=== PATIENT | male | born 1975 | race Caucasian/White ===

== ENCOUNTER → 2016-06-27 | Outpatient (REF) | payer BC | LOC: M SMT 09:30 | PROVIDERS: ATTEND Urology | DX: Z30.2 Encounter for sterilization (principal) ==

== ENCOUNTER → 2016-08-25 | Outpatient (REF) | payer BC ==
[2016-08-25 13:56] LABS: IMMMOTILE SPERM CENTRIFUGED ABSENT (ABSENT); IMMOTILE SPERM ABSENT (ABSENT); MOTILE SPERM ABSENT (ABSENT); MOTILE SPERM CENTRIFUGED ABSENT (ABSENT)
== END ==
LOC: M SMT 13:15
PROVIDERS: ATTEND Urology
DX: Z30.2 Encounter for sterilization (principal)

== ENCOUNTER 2018-11-24 11:23 | Inpatient (IN) | payer BC ==
[~2018-11-24] VITALS: Ht 182.9 cm; Wt 143.8 kg
[2018-11-24] MEDS ORDERED: NS 1,000 ML IV ONE ×2 (11:30→12:30)
[2018-11-24] MEDS ORDERED: OLME40TA PO (11:34)
[2018-11-24] MEDS ORDERED: ONDANSETRON 4MG/2ML VIAL (J2405) IV ONE ×2 (12:00→15:00)
[2018-11-24] MEDS ORDERED: KETOROLAC 30 MG/ML VIAL (J1885) IV ONE ×2 (12:00→12:30)
[2018-11-24 12:01] LABS: BASO % 0.3 % (0.0-1.0); HEMATOCRIT 40.5 % (42.0-52.0); HEMOGLOBIN 14.3 g/dl (13.5-17.5); LYMPH # 0.5 10^3/uL (1.5-4.5); LYMPH % 5.3 % (24.0-44.0); MEAN CORPUSCULAR HEMOGLOBIN 29.9 pg (27.0-33.0); MEAN CORPUSCULAR HGB CONC 35.3 g/dl (32.0-36.5); MEAN CORPUSCULAR VOLUME 84.7 fl (80.0-96.0); MONO # 0.6 10^3/uL (0.0-0.8); MONO % 6.3 % (0.0-5.0); NEUTROPHILS # 7.7 10^3/uL (1.8-7.7); NEUTROPHILS % 87.6 % (36.0-66.0); PLATELET COUNT, AUTOMATED 146 10^3/uL (150-450); RED BLOOD COUNT 4.78 10^6/uL (4.30-6.10); WHITE BLOOD COUNT 8.8 10^3/uL (4.0-10.0)
[2018-11-24] MEDS ORDERED: MORPHINE 4 MG/ML 1ML VIAL/SYRINGE (J2270) IV ONE ×2 (12:15→13:15)
[2018-11-24 12:32] LABS: ALBUMIN 3.5 GM/DL (3.2-5.2); BILIRUBIN,DIRECT 0.3 MG/DL (0.0-0.2); BILIRUBIN,TOTAL 0.7 MG/DL (0.2-1.0); TOTAL PROTEIN 7.4 GM/DL (6.4-8.2)
[2018-11-24] MEDS ORDERED: ISOVUE-370 76% 100ML VIAL (Q9967) As Ordered ONE (12:33)
[2018-11-24] MEDS ORDERED: diphenhydrAMINE INJ 50MG/ML VIAL (J1200) IV STA (13:16)
--- NOTE | 2018-11-24 13:20 | REP ---
Clinical: Severe abdominal pain. Technique: Axial contrast enhanced images from the lung bases to the pubic symphysis with coronal and sagittal re-formations using oral (per protocol) and 100 ml Isovue 370 intravenous contrast material with coronal and sagittal re-formations. Findings: Extensive phlegmonous and inflammatory changes are identified in the right upper quadrant extending into the right mid and lower abdomen as well as the retroperitoneal space surrounding the head/uncinate process of the pancreas and duodenum. Diffuse fatty infiltration to the liver noted. The gallbladder is moderately distended but without obvious gallstones or pericholecystic fluid in the gallbladder fossa. There is no evidence for bowel obstruction and a normal appendix is identified in the right lower quadrant. No free air identified. These findings are most compatible with acute pancreatitis versus duodenitis versus severe peptic ulcer disease and possible perforated ulcer without free air. No discrete drainable collection or abscess has yet formed. Spleen, bilateral adrenal glands and kidneys are normal. There is no evidence for bowel obstruction and a normal terminal ileum, cecum and appendix are identified in the right lower quadrant. Pelvis demonstrates normal bladder and age appropriate prostate/seminal vesicles. Abdominal aorta and inferior vena cava are grossly normal. Musculoskeletal structures are intact. Lung bases demonstrate trace right basilar atelectasis. Impression: 1. Severe phlegmonous and inflammatory changes in the right upper quadrant and right mid to lower abdomen as described above. Differential diagnosis includes pancreatitis as well as duodenitis and possible perforated duodenal ulcer without free air. Electronically Signed by James Han MD 11/24/2018 01:12 P
[2018-11-24] MEDS ORDERED: PIPERACILLIN/TAZOBACTAM SOD 3.375 GM in D5W MINI-BAG PLUS 50 ML IV ONE (13:30)
--- NOTE | 2018-11-24 14:05 | ECGEPIP ---
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
[2018-11-24] MEDS: HYDROMORPHONE HCL 0.5 MG/ 0.5 ML SYRINGE (J1170 PER 1) IV PRN ×4 (15:08→23:31)
[2018-11-24] MEDS ORDERED: ONDANSETRON 4MG/2ML VIAL (J2405) IV PRN (15:15)
[2018-11-24] MEDS ORDERED: METOCLOPRAMIDE INJ 10MG/2ML VIAL (J2765) IV PRN (15:15)
[2018-11-24] MEDS: LR 1,000 ML IV SCH ×2 (16:24→23:34)
[2018-11-24 17:36] VITALS: BP 135/65
[2018-11-24 17:36] LABS: INR 1.24; PROTHROMBIN TIME 15.3 SECONDS (11.8-14.0)
[2018-11-24 17:37] LABS: PARTIAL THROMBOPLASTIN TIME 25.8 SECONDS (25.0-38.4)
[2018-11-24] MEDS: PANTOPRAZOLE 40MG INJ (PROTONIX) (C9113) IV SCH (17:47)
[2018-11-24] MEDS ORDERED: HYDROmorphone HCL 2 MG/ML 1ML VIAL (J1170) IV PRN (18:00)
[2018-11-24] MEDS ORDERED: HYDROMORPHONE HCL 0.5 MG/ 0.5 ML SYRINGE (J1170 PER 1) IV PRN (18:00)
[2018-11-24 20:31] LABS: BASO % 0.3 % (0.0-1.0); HEMATOCRIT 38.2 % (42.0-52.0); HEMOGLOBIN 12.9 g/dl (13.5-17.5); LYMPH # 0.4 10^3/uL (1.5-4.5); LYMPH % 6.1 % (24.0-44.0); MEAN CORPUSCULAR HEMOGLOBIN 29.9 pg (27.0-33.0); MEAN CORPUSCULAR HGB CONC 33.8 g/dl (32.0-36.5); MEAN CORPUSCULAR VOLUME 88.6 fl (80.0-96.0); MONO # 0.5 10^3/uL (0.0-0.8); MONO % 7.9 % (0.0-5.0); NEUTROPHILS # 5.6 10^3/uL (1.8-7.7); NEUTROPHILS % 85.1 % (36.0-66.0); PLATELET COUNT, AUTOMATED 119 10^3/uL (150-450); RED BLOOD COUNT 4.31 10^6/uL (4.30-6.10); WHITE BLOOD COUNT 6.6 10^3/uL (4.0-10.0)
[2018-11-24] MEDS: PIPERACILLIN/TAZOBACTAM SOD 3.375 GM in D5W MINI-BAG PLUS 50 ML IV SCH (20:35)
[2018-11-24 20:47] LABS: ALBUMIN 3.2 GM/DL (3.2-5.2); ALT/SGPT 108 U/L (12-78); AMYLASE 70 U/L (25-115); BILIRUBIN,TOTAL 0.5 MG/DL (0.2-1.0); BLOOD UREA NITROGEN 23 MG/DL (7-18); CARBON DIOXIDE LEVEL 28 MEQ/L (21-32); CHLORIDE LEVEL 105 MEQ/L (98-107); CREATININE FOR GFR 1.32 MG/DL (0.70-1.30); GLOMERULAR FILTRATION RATE > 60.0 (>60); GLUCOSE, FASTING 130 MG/DL (70-100); LIPASE 726 U/L (73-393); POTASSIUM SERUM 4.2 MEQ/L (3.5-5.1); SODIUM LEVEL 140 MEQ/L (136-145)
[2018-11-24 21:00] VITALS: BP 113/52
[2018-11-24 22:00] VITALS: BP 124/81
[2018-11-24] MEDS: HumaLOG INSULIN (NovoLOG) PER UNIT SC SCH (23:30)
[2018-11-25] VITALS (11 sets, daily range): BP systolic 107–141; BP diastolic 62–81
[2018-11-25] MEDS: PIPERACILLIN/TAZOBACTAM SOD 3.375 GM in D5W MINI-BAG PLUS 50 ML IV SCH ×3 (03:05→15:32)
[2018-11-25] MEDS: LR 1,000 ML IV SCH ×6 (03:05→23:46)
[2018-11-25] MEDS: HYDROMORPHONE HCL 0.5 MG/ 0.5 ML SYRINGE (J1170 PER 1) IV PRN ×4 (03:06→16:30)
[2018-11-25 04:43] LABS: BASO % 0.7 % (0.0-1.0); HEMATOCRIT 33.8 % (42.0-52.0); HEMOGLOBIN 11.5 g/dl (13.5-17.5); LYMPH # 0.4 10^3/uL (1.5-4.5); LYMPH % 7.5 % (24.0-44.0); MEAN CORPUSCULAR HEMOGLOBIN 29.5 pg (27.0-33.0); MEAN CORPUSCULAR VOLUME 86.7 fl (80.0-96.0); MONO # 0.4 10^3/uL (0.0-0.8); MONO % 7.1 % (0.0-5.0); NEUTROPHILS % 84.4 % (36.0-66.0); PLATELET COUNT, AUTOMATED 102 10^3/uL (150-450); WHITE BLOOD COUNT 5.9 10^3/uL (4.0-10.0)
[2018-11-25 05:06] LABS: ALBUMIN 2.9 GM/DL (3.2-5.2); ALT/SGPT 97 U/L (12-78); BILIRUBIN,TOTAL 0.5 MG/DL (0.2-1.0); BLOOD UREA NITROGEN 22 MG/DL (7-18); CALCIUM LEVEL 7.7 MG/DL (8.5-10.1); CARBON DIOXIDE LEVEL 26 MEQ/L (21-32); CHLORIDE LEVEL 106 MEQ/L (98-107); CREATININE FOR GFR 1.19 MG/DL (0.70-1.30); GLOMERULAR FILTRATION RATE > 60.0 (>60); GLUCOSE, FASTING 153 MG/DL (70-100); LIPASE 368 U/L (73-393); POTASSIUM SERUM 4.3 MEQ/L (3.5-5.1); SODIUM LEVEL 137 MEQ/L (136-145); TOTAL PROTEIN 6.3 GM/DL (6.4-8.2); TRIGLYCERIDES LEVEL 159 MG/DL (<150)
[2018-11-25] MEDS: HumaLOG INSULIN (NovoLOG) PER UNIT SC SCH ×3 (06:08→18:12)
[2018-11-25] MEDS: ACETAMINOPHEN TAB 650MG DOSE (2X325MG) PO PRN ×2 (12:37→23:48)
--- NOTE | 2018-11-25 14:03 | REP ---
Clinical: Cholelithiasis. Technique: Real time gonzalez scale ultrasound examination using curved array transducer. Findings: Gallbladder is normal and without gallstones, wall thickening, or pericholecystic fluid. No biliary ductal dilatation is appreciated and the common bile duct measures 4.7 mm diameter. Liver is increased echogenicity with poor through transmission suggesting fatty infiltration. The pancreas is incompletely evaluated due to interposed bowel gas. Right kidney is normal in reniform shape without hydronephrosis and measures 12.1 x 5.6 x 6.9 cm. Impression: 1. Hepatic steatosis. 2. Normal gallbladder and biliary system. Electronically Signed by James Han MD 11/25/2018 09:15 A
--- NOTE | 2018-11-25 14:03 | HPE ---
DATE OF ADMISSION: 11/24/2018 REASON FOR ADMISSION: Abdominal pain with marked retroperitoneal inflammation, possibly pancreatitis versus hemorrhage versus perforation. HISTORY OF PRESENT ILLNESS: The patient is a very pleasant 43-year-old man who presented to the emergency department at 1123 in the morning on the 11/24/2018 with a 2-day history of abdominal pain and some nausea and vomiting. The patient reports that his children had been ill recently with a gastrointestinal (GI) process. On , 11/22/2018, he began to feel mildly unwell with some nausea and then developed some vomiting. He continued on 11/23/2018 with some dry heaves and began to have more significant sharper abdominal pain in the epigastrium later in the day. This pain became severe overnight into 11/24/2018. He reportedly was diaphoretic and extremely uncomfortable and came to the emergency department for evaluation. On presentation, he had a pulse of approximately 160, though his blood pressure was acceptable. He was in severe pain. He underwent evaluation with some basic laboratory studies and then had a CT scan of the abdomen and pelvis obtained. His chemistries were not strikingly abnormal with a slight depression in his sodium and chloride, a glucose of 192, BUN of 24, and creatinine 1.6. His liver function tests showed very slight elevations of his AST and ALT, but his amylase and lipase were normal. His white count was normal at 9000, though he had 88% neutrophils. CT scan of the abdomen and pelvis showed extensive inflammatory changes in the retroperitoneum of the right upper quadrant and right mid to lower abdomen. These changes were most prominent around the first, second and third portions of the duodenum and the pancreatic head. The gallbladder was noted to be to moderately distended, but without obvious gallstones. There was no free air identified in the abdomen or in the retroperitoneum. The radiologist felt the findings were most compatible with acute pancreatitis, but also included possible diagnoses of duodenitis or severe peptic ulcer disease and possible perforated ulcer without free air. I was consulted and the patient is now admitted for management. MEDICATIONS: The patient's only regular medication is olmesartan 40 mg by mouth daily for his blood pressure. ALLERGIES: Reported to CEPHALEXIN, which causes hives. SURGICAL HISTORY: Entirely negative. MEDICAL HISTORY: Significant only for his hypertension and he also suffers from obesity. SOCIAL HISTORY: The patient is and accompanied to the emergency department by his spouse. He denies any tobacco use and reports infrequent alcohol intake, most recently several weeks ago. 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 REVIEW OF SYSTEMS: Reveals no history of chronic severe headaches, seizure or stroke. He denies any chest pain or palpitations. He has had no cough, wheezing or sputum production. He denies any prior history of abdominal pain, though many years ago when a teenager he had an episode of abdominal pain for several days. He has had no history of peptic ulcer disease, jaundice or pancreatitis. He denies any dysuria or hematuria. He has no significant bone or joint issues and denies any history of deep vein thrombosis (DVT) or pulmonary embolus. PHYSICAL EXAMINATION: The patient's reported height is 6 feet 0 inches with a weight of 136 kg. At the time I saw him, his pulse was approximately 125 with a blood pressure of 151/71. He is alert and oriented. He was lying on his right side with his knees drawn up reporting that this was his most comfortable position. During the course of the interview, he occasionally had what appeared to be waves of more severe pain. Sclerae are anicteric. Mucous membranes are moist. Neck is supple without mass or bruit. Heart exam shows a significant tachycardia, which is regular. On the monitor, this appears consistent with a sinus tachycardia. The lungs are clear to auscultation bilaterally. The abdomen is somewhat obese and perhaps mildly distended. He does have some bowel sounds present, particularly in the lower quadrants. The abdomen is soft and there is no particular tenderness on palpation at this time. There is no sign of hernia. Extremities show palpable radial and dorsalis pedis pulses. LABORATORY STUDIES: Again show a white count of 9, hemoglobin 14 with a hematocrit of 40 and a platelet count of 146,000. Differential count showed 88% neutrophils, 5% lymphocytes and 6% monocytes. He had an initial lactic acid of 3.5. His electrolytes and liver function tests (LFTs) were as noted in the history of present illness. His amylase was only 41 with a lipase of 284. He had a PT of 15.3 with an INR of 1.24 and a PTT of 25.8. IMPRESSION: The patient has extensive inflammation in the retroperitoneum involving the periduodenal and peripancreatic areas and extending down the right side of the abdomen all the way to the pelvis. There is no free air or any other air bubbles contained within the retroperitoneum. The kidneys appear normal bilaterally without any perinephric inflammation. The gallbladder is perhaps mildly distended, but there are no stones seen and the gallbladder wall does not appear thickened. The liver appears normal. It is unclear what the etiology of his pain and inflammation is for certain. Certainly, the clinical presentation and the x-ray picture would be consistent with acute pancreatitis, though his amylase and lipase are normal. He did have some violent vomiting and dry heaves yesterday. This infiltration through his retroperitoneum could represent bleeding, though he has had no history of trauma. He has not had any symptoms to suggest a developing ulcer which could lead now to perforation. It seems most likely that this represents pancreatitis and he will be admitted to the intensive care unit for close observation and treatment. PLAN: He is being admitted to the intensive care unit. He has received 2 liters of normal saline in the emergency department and will continue with IV hydration. A nasogastric tube will be placed. He was started on some antibiotics in the emergency department, but this is not for the possibility of pancreatitis so much as this is to cover him if this in fact represents diverticulitis of the duodenum or a contained perforation. I will repeat his laboratory studies later this evening to see what the changes may have taken place and to ensure that his hydration has been adequate. He will be provided with Dilaudid as needed for pain as this seemed to be more effective in the emergency department. He will be started on Protonix for ulcer prophylaxis. He will receive antiemetics as needed. I discussed with the patient and his spouse my concerns about diagnostic possibilities and the plan for treatment. He is agreeable with the plan as outlined.
[2018-11-25] MEDS: PANTOPRAZOLE 40MG INJ (PROTONIX) (C9113) IV SCH (15:32)
--- NOTE | 2018-11-25 19:59 | IPN ---
DATE: 11/25/2018 HISTORY: Patient was admitted yesterday afternoon with severe upper abdominal pain with significant retroperitoneal inflammation around the duodenum and pancreas. The history and imaging were felt to be consistent with pancreatitis, though his initial amylase and lipase were normal. Followup labs yesterday evening did show an elevation of his lipase to 726, though his amylase remained normal. Triglycerides were minimally elevated at 159. He reports that he is feeling much better today with significantly less pain. Duran catheter and nasogastric tube remain in place. His urine output has been good recently. Vital signs show that his pulse has come down from the 120s to 130s to the one-teens today. His blood pressure is good and his oxygen saturation is good with 1 liter of nasal cannula oxygen. He did have a temperature up to 102.5 degrees at noon today, but this came down rapidly to a normal. Intake and output: The patient has 3300 in yesterday with 750 out and today so far he has almost 4 liters in but his urine output is 1100 and the nasogastric (NG) shows 400 mL out. PHYSICAL EXAMINATION: Patient is sitting up in bed and looks pretty comfortable actually. Skin is warm and dry. Heart exam shows a regular rhythm at approximately 110. The lungs are clear. The abdomen is mildly distended and somewhat firm. He has some mild tenderness across the epigastric area. There are some bowel sounds present, though these are somewhat diminished. Laboratory studies this morning show a sodium of 137, potassium 4.3, chloride 106, CO2 of 26, a BUN of 22 and a creatinine of 1.19. The creatinine is down from 1.32 yesterday evening and 1.6 at the time of presentation. His glucose is 153. There are minimal elevations of his AST and ALT, though his total bilirubin is normal, as is his alkaline phosphatase. His triglycerides were 159, with a lipase this morning of 368. His complete blood count (CBC) shows a white count of 6, hemoglobin of 12, hematocrit of 34 and platelet count of 102,000. Differential count shows 84% neutrophils, 8% lymphocytes and 7% monocytes. IMPRESSION: Patient's history and CT scan and labs, I think, are most consistent with pancreatitis. The etiology is not entirely clear. He denies any alcohol. We have not identified any gallstones, although he did have a gallbladder ultrasound today, the results of which are pending. His triglycerides are very slightly above normal, but not enough to make me think this is a potential etiology. His children did have intestinal bugs this past week and perhaps this is viral in etiology. PLAN: As patient's urine output has picked up, I will slow down his intravenous (IV) rate, which has been running at 300 mL/hour. I will also stop his Zosyn. He is encouraged to be up out of bed. We will continue his NG tube and Duran catheter for now. I will keep him in the intensive care unit at least overnight and consider moving him out tomorrow if he remains stable. His labs will be rechecked in the morning. IVONE
[2018-11-26] VITALS (21 sets, daily range): BP systolic 93–164; BP diastolic 59–90; O2SAT 96
[2018-11-26 05:16] LABS: BASO % 0.6 % (0.0-1.0); HEMATOCRIT 30.9 % (42.0-52.0); HEMOGLOBIN 10.3 g/dl (13.5-17.5); LYMPH # 0.7 10^3/uL (1.5-4.5); LYMPH % 14.5 % (24.0-44.0); MEAN CORPUSCULAR HEMOGLOBIN 29.1 pg (27.0-33.0); MEAN CORPUSCULAR HGB CONC 33.3 g/dl (32.0-36.5); MEAN CORPUSCULAR VOLUME 87.3 fl (80.0-96.0); MONO # 0.5 10^3/uL (0.0-0.8); MONO % 9.9 % (0.0-5.0); NEUTROPHILS # 3.4 10^3/uL (1.8-7.7); NEUTROPHILS % 74.1 % (36.0-66.0); RED BLOOD COUNT 3.54 10^6/uL (4.30-6.10); WHITE BLOOD COUNT 4.6 10^3/uL (4.0-10.0)
[2018-11-26 05:45] LABS: PLATELET COUNT, AUTOMATED 89 10^3/uL (150-450)
[2018-11-26 05:46] LABS: ALBUMIN 2.6 GM/DL (3.2-5.2); ALT/SGPT 125 U/L (12-78); BILIRUBIN,TOTAL 0.8 MG/DL (0.2-1.0); BLOOD UREA NITROGEN 19 MG/DL (7-18); CARBON DIOXIDE LEVEL 28 MEQ/L (21-32); CHLORIDE LEVEL 105 MEQ/L (98-107); CREATININE FOR GFR 1.08 MG/DL (0.70-1.30); GLOMERULAR FILTRATION RATE > 60.0 (>60); GLUCOSE, FASTING 116 MG/DL (70-100); LIPASE 390 U/L (73-393); SODIUM LEVEL 138 MEQ/L (136-145)
[2018-11-26] MEDS: HumaLOG INSULIN (NovoLOG) PER UNIT SC SCH ×4 (06:00→17:53)
[2018-11-26] MEDS: ACETAMINOPHEN TAB 650MG DOSE (2X325MG) PO PRN (06:29)
[2018-11-26] MEDS: LR 1,000 ML IV SCH ×3 (07:15→16:09)
[2018-11-26] MEDS ORDERED: ENOXAPARIN 40 MG/0.4 ML SYRINGE (J1650) SC SCH (09:00)
[2018-11-26] MEDS ORDERED: HYDROMORPHONE HCL 0.5 MG/ 0.5 ML SYRINGE (J1170 PER 1) IV PRN (09:45)
[2018-11-26] MEDS: HYDROMORPHONE HCL 0.5 MG/ 0.5 ML SYRINGE (J1170 PER 1) IV PRN ×2 (10:56→19:26)
--- NOTE | 2018-11-26 14:04 | REP ---
KUB: Two views. History: Check NG tube position. FINDINGS: A nasogastric tube has been passed and is seen in the body of the stomach. Bowel gas pattern is normal. No bony abnormality. IMPRESSION: NG tube appears to be in good position. Electronically Signed by Gregor Molina MD 11/26/2018 05:12 P
[2018-11-26] MEDS: PANTOPRAZOLE 40MG INJ (PROTONIX) (C9113) IV SCH (16:08)
--- NOTE | 2018-11-26 17:32 | REP ---
Chest x-ray: Single view. History: Fever. Findings: A nasogastric tube enters left upper quadrant. There is a granulomatous calcification in the left lung apex. Lung dodd are otherwise clear. The pleural angles are sharp. Heart size is normal. Pulmonary vasculature is not increased. Impression: No active disease. NG tube enters left upper quadrant. Electronically Signed by Gregor Molina MD 11/26/2018 05:24 P
[2018-11-26] MEDS ORDERED: HYDROmorphone HCL 2 MG/ML 1ML VIAL (J1170) IV ONE (20:00)
[2018-11-26] MEDS ORDERED: NS 1,000 ML IV SCH (21:30)
[2018-11-26] MEDS ORDERED: NS 1,000 ML IV ONE (21:45)
[2018-11-26 22:05] LABS: HEMATOCRIT 26.6 % (42.0-52.0); HEMOGLOBIN 9.3 g/dl (13.5-17.5); MEAN CORPUSCULAR HEMOGLOBIN 30.7 pg (27.0-33.0); MEAN CORPUSCULAR VOLUME 87.8 fl (80.0-96.0); RED BLOOD COUNT 3.03 10^6/uL (4.30-6.10); WHITE BLOOD COUNT 5.6 10^3/uL (4.0-10.0)
[2018-11-26 22:21] LABS: PLATELET COUNT, AUTOMATED 97 10^3/uL (150-450)
[2018-11-26 22:34] LABS: ATYPICAL LYMPH 5 % (0-5); BASOPHILS 1 % (0-4); LYMPHOCYTES 15 % (16-52); MONOCYTES 5 % (0-8); NEUTROPHILS 74 % (35-75)
[2018-11-26 22:35] LABS: PLATELET ESTIMATE DECREASED (NORMAL)
[2018-11-27] VITALS (29 sets, daily range): BP systolic 126–166; BP diastolic 59–109; O2SAT 95–97
[2018-11-27] MEDS: LR 1,000 ML IV SCH ×2 (00:01→17:04)
[2018-11-27] MEDS: HumaLOG INSULIN (NovoLOG) PER UNIT SC SCH ×4 (00:01→18:06)
--- NOTE | 2018-11-27 00:52 | REPVR ---
EXAM: XR Abdomen, 2 Views EXAM DATE/TIME: 11/26/2018 11:47 PM CLINICAL HISTORY: 43 years old, male; Abdominal pain; Other: Rule out freee air; Additional info: Abd pain, R/O free air TECHNIQUE: Imaging protocol: Frontal view of the abdomen/pelvis with upright view of the abdomen. COMPARISON: CR Abdomen,Flat Plate KUB 11/26/2018 10:36 AM FINDINGS: Tubes, catheters and devices: The tip of the NG tube is in the distal stomach. Gastrointestinal tract: There is no small or large bowel distention. Intraperitoneal space: No evidence of free air on these supine views. Bones/joints: Unremarkable for age. IMPRESSION: 1. Nonobstructive bowel gas pattern. 2. No evidence of free air. 3. Tip of NG tube in distal stomach. Electronically signed by: Ze Ryan On 11/27/2018 00:51:38 AM
[2018-11-27 04:39] LABS: HEMATOCRIT 24.6 % (42.0-52.0); HEMOGLOBIN 8.6 g/dl (13.5-17.5); MEAN CORPUSCULAR HEMOGLOBIN 30.6 pg (27.0-33.0); MEAN CORPUSCULAR VOLUME 87.5 fl (80.0-96.0); PLATELET COUNT, AUTOMATED 104 10^3/uL (150-450); RED BLOOD COUNT 2.81 10^6/uL (4.30-6.10); WHITE BLOOD COUNT 5.7 10^3/uL (4.0-10.0)
[2018-11-27 05:01] LABS: ALBUMIN 2.5 GM/DL (3.2-5.2); ALT/SGPT 128 U/L (12-78); BILIRUBIN,TOTAL 0.7 MG/DL (0.2-1.0); BLOOD UREA NITROGEN 23 MG/DL (7-18); CALCIUM LEVEL 8.3 MG/DL (8.5-10.1); CARBON DIOXIDE LEVEL 30 MEQ/L (21-32); CHLORIDE LEVEL 109 MEQ/L (98-107); CREATININE FOR GFR 1.05 MG/DL (0.70-1.30); GLOMERULAR FILTRATION RATE > 60.0 (>60); GLUCOSE, FASTING 121 MG/DL (70-100); LIPASE 735 U/L (73-393); POTASSIUM SERUM 4.1 MEQ/L (3.5-5.1); SODIUM LEVEL 135 MEQ/L (136-145); TOTAL PROTEIN 5.8 GM/DL (6.4-8.2)
[2018-11-27 05:13] LABS: ATYPICAL LYMPH 2 % (0-5); LYMPHOCYTES 21 % (16-52); MONOCYTES 12 % (0-8); NEUTROPHILS 65 % (35-75); PLATELET ESTIMATE DECREASED (NORMAL)
--- NOTE | 2018-11-27 05:36 | CR.PDOC ---
General Date of Consultation: Nov 26, 2018 Referring Provider: Luis Avila Jr Primary Care Physician: Osvaldo Mcdowell Attending Physician: KARI CHANDLER DO Consultation REASON FOR CONSULTATION/CHIEF COMPLAINT: tachycardia HISTORY OF PRESENT ILLNESS: 43 yo male admitted with pancreatitis - unclear etiology as patient had negative US gallbladder. He was clinically improving with his pancreatitis until approx 1930 when he passed large flatus and had increased abdomen pain and tachycardia. Abdomen pain was relieved with pain medications (dilaudid) but he continued to be tachycardic. Lab evaluation showed significant drop in hemoglobin but he denies melena, hematochezia and NGT shows no blood. patient states no CP, no SOB, but has some nausea, no vomiting, continues with intermittent "gas pain" "abdomen pain". No improvement of tachycardia with IVF. He is not hypotensive with tachycardia ALLERGIES: Please see below. HOME MEDICATIONS: Please see below. PAST MEDICAL HISTORY: HTN PAST SURGICAL HISTORY: NONE FAMILY HISTORY: non contributory at this time SOCIAL HISTORY: no tobacco, no etoH use REVIEW OF SYSTEMS: 10 systems reviewed and negative except as HPI PHYSICAL EXAMINATION: VITAL SIGNS: Please see below. GENERAL APPEARANCE: NAD, AAOx3, pleasant HEENT: no JVD, oral mucosa moist, NGT intact RESPIRATORY: LCTA no W/R/R CARDIOVASCULAR: heart - tachycardic, regular, no murmur ABDOMEN: soft, bowel sound is LLQ present; tenderness along RUQ; no rebound, no rigidity, no guarding EXTREMITIES: no edema SKIN: no rash LABORATORY DATA: Please see below. CT ABD/PEL:Impression: 1. Severe phlegmonous and inflammatory changes in the right upper quadrant and right mid to lower abdomen as described above. Differential diagnosis includes pancreatitis as well as duodenitis and possible perforated duodenal ulcer without free air. KUB: negative for free air US: no gallstones ASSESSMENT/PLAN: Tachycardia in the presence of anemia, thrombocytopenia and pancreatitis worry some for bleeding but unclear where. repeat KUB without free air. If no improvement by AM - will check CT ABD/PEL to check for bleeding into phlegmon or ulcer. consider tagged RBC if available. I suspect tachycardia is due to anemia/bleeding and NOT from withdraw, NOT from pain and NOT from PE (as patient is thrombocytopenic and received lovenox). Patient refused 2 unit pRBC this evening and again at 0200 on 11/27/18. Repeat H/H this AM is decreased (dilutional vs bleeding). He is agreeable to 2 unit pRBC and have ordered CT abd/pelv. Will sign out to [facility] hospitalist to continue to follow. Hesitant to use metoprolol or rate controlling medication for tachycardia (normally on ARB for HTN) as this may be a clinical indicator for something more sinister evolving. WIth his current age, and comorbidity, he is tolerating tachycardia. Thank you for allowing the hospitalists to participate in the care of this patient Vital Signs/I&O Vital Signs Date Time Temp Pulse Resp B/P (MAP) Pulse Ox O2 Delivery O2 Flow Rate FiO2 11/26/18 22:30 140 115/66 (82) 1.0 11/26/18 21:45 98 11/26/18 20:16 18 11/26/18 20:00 99.1 11/24/18 16:47 Room Air I&O- Last 24 Hours up to 6 AM 11/26/18 06:00 Intake Total 4260 ml Output Total 2610 ml Balance 1650 ml Laboratory Data Labs 24H Laboratory Tests 2 11/25/18 23:50: Bedside Glucose (Misc Panel) 126H 11/26/18 04:50: Immature Granulocyte % (Auto) 0.9, White Blood Count 4.6, Red Blood Count 3.54L, Hemoglobin 10.3L, Hematocrit 30.9L, Mean Corpuscular Volume 87.3, Mean Corpuscular Hemoglobin 29.1, Mean Corpuscular Hemoglobin Concent 33.3, Red Cell Distribution Width 12.1, Platelet Count 89L, Neutrophils (%) (Auto) 74.1H, Lymphocytes (%) (Auto) 14.5L, Monocytes (%) (Auto) 9.9H, Eosinophils (%) (Auto) 0.0, Basophils (%) (Auto) 0.6, Neutrophils # (Auto) 3.4, Lymphocytes # (Auto) 0.7L, Monocytes # (Auto) 0.5, Eosinophils # (Auto) 0.0, Basophils # (Auto) 0.0, Nucleated Red Blood Cells % (auto) 0.0, Immature Platelet Fraction 2.8, Anion Gap 5L, Glomerular Filtration Rate > 60.0, Blood Urea Nitrogen 19H, Creatinine 1.08, Sodium Level 138, Potassium Level 4.0, Chloride Level 105, Carbon Dioxide Level 28, Calcium Level 8.0L, Aspartate Amino Transf (AST/SGOT) 101H, Alanine Aminotransferase (ALT/SGPT) 125H, Alkaline Phosphatase 44L, Total Bilirubin 0.8#, Total Protein 6.0L, Albumin 2.6L, Albumin/Globulin Ratio 0.76L, Lipase 390 11/26/18 11:58: Bedside Glucose (Misc Panel) 117H 11/26/18 17:48: Bedside Glucose (Misc Panel) 124H 11/26/18 21:53: Nucleated Red Blood Cells % (auto) 0.0, Neutrophils 74, Lymphocytes (Manual) 15L, Monocytes (Manual) 5, Basophils (Manual) 1, Atypical Lymphocytes 5, Platelet Estimate DECREASED Item Value Date Time Hemoglobin 8.6 g/dl L 11/27/18 041 Hemoglobin 9.3 g/dl L 11/26/18 2153 Hemoglobin 10.3 g/dl L 11/26/18 0450 Hemoglobin 11.5 g/dl L 11/25/18 0424 Hemoglobin 12.9 g/dl L 11/24/181948 Hemoglobin 14.3 g/dl 11/24/18 1146 Lipase 735 U/L H 11/27/18 0419 Lipase 390 U/L 11/26/18 0450 Lipase 368 U/L 11/25/18 0424 Lipase 726 U/L H 11/24/181948 Lipase 284 U/L 11/24/18 1147 Lactic Acid Level 3.5 MMOL/L *H 11/24/18 1156 Lactic Acid Level 1.5 MMOL/L 11/24/18 1429 Sodium Level 135 MEQ/L L 11/27/18 0419 Potassium Level 4.1 MEQ/L 11/27/18 0419 Blood Urea Nitrogen 23 MG/DL H 11/27/18 0419 Creatinine 1.05 MG/DL 11/27/18 0419 Aspartate Amino Transf (AST/SGOT) 90 U/L H 11/27/18 0419 Alanine Aminotransferase (ALT/SGPT) 128 U/L H 11/27/18 0419 CBC/BMP Laboratory Tests 11/26/18 04:50 Red Blood Count 3.54 L, Mean Corpuscular Volume 87.3, Mean Corpuscular Hemoglobin 29.1, Mean Corpuscular Hemoglobin Concent 33.3, Red Cell Distribution Width 12.1, Neutrophils (%) (Auto) 74.1 H, Lymphocytes (%) (Auto) 14.5 L, Monocytes (%) (Auto) 9.9 H, Eosinophils (%) (Auto) 0.0, Basophils (%) (Auto) 0.6, Neutrophils # (Auto) 3.4, Lymphocytes # (Auto) 0.7 L, Monocytes # (Auto) 0.5, Eosinophils # (Auto) 0.0, Basophils # (Auto) 0.0, Calcium Level 8.0 L, Aspartate Amino Transf (AST/SGOT) 101 H, Alanine Aminotransferase (ALT/SGPT) 125 H, Alkaline Phosphatase 44 L, Total Bilirubin 0.8 #, Total Protein 6.0 L, Albumin 2.6 L 11/26/18 21:53 Red Blood Count 3.03 L, Mean Corpuscular Volume 87.8, Mean Corpuscular Hemoglobin 30.7, Mean Corpuscular Hemoglobin Concent 35.0, Red Cell Distribution Width 12.2 Microbiology Microbiology 11/24/18 Blood Culture - Preliminary, Resulted No Growth after 48 hours. All Specime... 11/24/18 Blood Culture - Preliminary, Resulted No Growth after 48 hours. All Specime... Allergies Coded Allergies: cephalexin (Verified Allergy, Unknown, hives, 11/24/18) Home Medications Scheduled Olmesartan Medoxomil (Olmesartan Medoxomil) 40 Mg Tablet, 40 MG PO DAILY, (Reported) KARI CHANDLER DO Nov 26, 2018 23:20
[2018-11-27] MEDS ORDERED: ISOVUE-370 76% 100ML VIAL (Q9967) As Ordered ONE (07:42)
--- NOTE | 2018-11-27 09:40 | REP ---
CT abdomen and pelvis with IV and oral contrast: History: Pancreatitis. Worse abdomen pain. Increasing anemia. Comparison CT study November 24, 2018. CT contrast dose: 100 ml of intravenous Isovue [address] findings: Lung window settings demonstrate a 1.1 cm noncalcified pulmonary nodule in the right lower lobe just above the right hemidiaphragm. There is discoid atelectasis in the right lower lobe which is slightly more prominent today than on the 11/24/2018 study. Nasogastric tube has been passed into the distal stomach. A small quantity of peritoneal fluid is seen surrounding the liver today. Fatty infiltration of the liver is again seen. No focal liver lesion is seen. Spleen is unremarkable. There is an accessory splenule. The gallbladder shows no abnormality. There is considerable induration/phlegmonous reaction adjacent to and inferior to the pancreatic head consistent with pancreatitis. This surrounds the duodenal C-loop as well. In the root of the mesentery, just inferior to the pancreatic head, there is a slightly higher attenuation collection 4.1 x 6.5 cm consistent with a hematoma in the mesenteric root. There is another similar sized high attenuation collection to the right and inferior to this in the paraduodenal soft tissues and extending into the right lower quadrant mesentery. There is edema and/or hemorrhage in the posterior pararenal fat particularly on the right. These changes are similar to the recent prior study of 11/24/2018 but there is more right lower quadrant mesenteric infiltration. This appears to surround the cecum today where as previously it was mostly posterior to the cecum. There is some lower attenuation ascites accumulating in the pelvic reflections and pericolic gutters bilaterally which is also a new finding. Just inferior to the pancreatic head, there is a hyperdense contrast-enhanced nodule measuring 12 x 9 x 12 mm. I suspect this is a developing pseudoaneurysm. It was smaller on 11/24/2018. Kidneys remain unremarkable. The prostate, seminal vesicles and urinary bladder are unremarkable. There is a small quantity of air in the urinary bladder. There is no evidence of free intraperitoneal air. Impression: Findings consistent with acute hemorrhagic pancreatitis with increased mesenteric fat edema and/or hemorrhage, new mild ascites, and evidence suggesting a developing 12 mm pseudoaneurysm along the inferior margin of the pancreatic head or adjacent small bowel mesentery. Electronically Signed by Gregor Molina MD 11/27/2018 04:45 P
[2018-11-27 11:09] LABS: HEMATOCRIT 29.9 % (42.0-52.0); HEMOGLOBIN 10.5 g/dl (13.5-17.5); MEAN CORPUSCULAR HEMOGLOBIN 30.3 pg (27.0-33.0); MEAN CORPUSCULAR HGB CONC 35.1 g/dl (32.0-36.5); MEAN CORPUSCULAR VOLUME 86.4 fl (80.0-96.0); PLATELET COUNT, AUTOMATED 114 10^3/uL (150-450); RED BLOOD COUNT 3.46 10^6/uL (4.30-6.10); WHITE BLOOD COUNT 7.6 10^3/uL (4.0-10.0)
[2018-11-27 11:24] LABS: ATYPICAL LYMPH 1 % (0-5); LYMPHOCYTES 16 % (16-52); MONOCYTES 10 % (0-8); NEUTROPHILS 73 % (35-75)
[2018-11-27 11:25] LABS: POIKILOCYTOSIS 1+; POLYCHROMASIA 1+
[2018-11-27] MEDS ORDERED: LIDOCAINE 1% MDV 20ML VIAL As Ordered ONE (15:26)
[2018-11-27] MEDS: PANTOPRAZOLE 40MG INJ (PROTONIX) (C9113) IV SCH (17:04)
[2018-11-27] MEDS ORDERED: SODIUM CHLORIDE 0.9% INJ 10 ML SYR IV PRN (17:15)
[2018-11-27] MEDS ORDERED: AMINO AC/ELECTROLYTE/DEX/CALC 2,000 ML IV SCH (18:00)
[2018-11-27] MEDS ORDERED: FAT EMULSION IV 20% 500 ML IV SCH (18:00)
[2018-11-27] MEDS: SODIUM CHLORIDE 0.9% INJ 10 ML SYR IV SCH (18:06)
--- NOTE | 2018-11-27 18:54 | IPNPDOC ---
Date Seen The patient was seen on 11/27/18. Progress Note SUBJECTIVE: Telemetry overnight: no AFlutter, Afib, AVNRT, MAT, or AVRT. Sinus tachycardia 130-150, which resolved after pt passed flatus and after 1liter ivfluids. He denies any chest pain, sob, pressure, tightness, lightheadedness,near syncope. He admits to chronic sinus tachycardia, denies ETOH abuse and drinks 8/year, and has no pain currently. Repeat CT abd: pancreatic pseudo-aneurysm currently receiveing rbc transfusion due to drop in hgb. PHYSICAL EXAMINATION: VITAL SIGNS: Please see below. GENERAL APPEARANCE: obese male, anicteric no jaundice no conversational dyspnea HEENT: no JVD, oral mucosa moist, NGT intact RESPIRATORY: LCTA no W/R/R CARDIOVASCULAR: heart - tachycardic, regular, no murmur ABDOMEN: soft, bowel sound is LLQ present; tenderness along RUQ; no rebound, no rigidity, no guarding EXTREMITIES: no edema SKIN: no rash LABORATORY DATA, IMAGING STUDIES, MICROBIOLOGY: Please see below. CT ABD/PEL:Impression: 1. Severe phlegmonous and inflammatory changes in the right upper quadrant and right mid to lower abdomen as described above. Differential diagnosis includes pancreatitis as well as duodenitis and possible perforated duodenal ulcer without free air. KUB: negative for free air US: no gallstones ASSESSMENT/PLAN: 43 yo male admitted with pancreatitis - unclear etiology as patient had negative US gallbladder. He was clinically improving with his pancreatitis until approx 1930 when he passed large flatus and had increased abdomen pain and tachycardia. Abdomen pain was relieved with pain medications (dilaudid) but he continued to be tachycardic. Lab evaluation showed significant drop in hemoglobin but he denies melena, hematochezia and NGT shows no blood. patient states no CP, no SOB, but has some nausea, no vomiting, continues with in termittent "gas pain" "abdomen pain". No improvement of tachycardia with IVF. He is not hypotensive with tachycardia. Sinus Tachycardia -in the setting of hemorrhagic pancreatitis, pseudoaneurysm, acute blood loss due to GI bleed -pt denies ETOH abuse or history of withdrawal -pt has no family or personal history of DVT, PE. received lovenox previously Acute Hemorrhagic Pancreatitis -NPO -TPN and IV Fluids, managed by primary team -formation of pseudoaneurysm to be embolized by IR in AM. 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 VS, I&O, 24H, Fishbone Vital Signs/I&O Vital Signs Date Time Temp Pulse Resp B/P (MAP) Pulse Ox O2 Delivery O2 Flow Rate FiO2 11/27/18 06:00 98.6 135 16 136/86 (103) 96 1.0 11/27/18 04:00 Nasal Cannula I&O- Last 24 Hours up to 6 AM 11/27/18 06:00 Intake Total 2800 ml Output Total 2175 ml Balance 625 ml Laboratory Data 24H LABS Laboratory Tests 2 11/26/18 11:58: Bedside Glucose (Misc Panel) 117H 11/26/18 17:48: Bedside Glucose (Misc Panel) 124H 11/26/18 21:53: Nucleated Red Blood Cells % (auto) 0.0, Neutrophils 74, Lymphocytes (Manual) 15L, Monocytes (Manual) 5, Basophils (Manual) 1, Atypical Lymphocytes 5, Platelet Estimate DECREASED 11/26/18 23:56: Bedside Glucose (Misc Panel) 141H 11/27/18 04:19: Nucleated Red Blood Cells % (auto) 0.0, Neutrophils 65, Lymphocytes (Manual) 21, Monocytes (Manual) 12H, Atypical Lymphocytes 2, Platelet Estimate DECREASED, Red Blood Cell Morphology NORMAL, Anion Gap -4L, Glomerular Filtration Rate > 60.0, Blood Urea Nitrogen 23H, Creatinine 1.05, Sodium Level 135L, Potassium Level 4.1, Chloride Level 109H, Carbon Dioxide Level 30, Calcium Level 8.3L, Aspartate Amino Transf (AST/SGOT) 90H, Alanine Aminotransferase (ALT/SGPT) 128H, Alkaline Phosphatase 41L, Total Bilirubin 0.7, Total Protein 5.8L, Albumin 2.5L, Albumin/Globulin Ratio 0.76L, Lipase 735H CBC/BMP Laboratory Tests 11/26/18 21:53 Red Blood Count 3.03 L, Mean Corpuscular Volume 87.8, Mean Corpuscular Hemoglobin 30.7, Mean Corpuscular Hemoglobin Concent 35.0, Red Cell Distribution Width 12.2 11/27/18 04:19 Red Blood Count 2.81 L, Mean Corpuscular Volume 87.5, Mean Corpuscular Hemoglobin 30.6, Mean Corpuscular Hemoglobin Concent 35.0, Red Cell Distribution Width 12.0, Calcium Level 8.3 L, Aspartate Amino Transf (AST/SGOT) 90 H, Alanine Aminotransferase (ALT/SGPT) 128 H, Alkaline Phosphatase 41 L, Total Bilirubin 0.7, Total Protein 5.8 L, Albumin 2.5 L Microbiology Microbiology 11/24/18 Blood Culture - Preliminary, Resulted No Growth after 48 hours. All Specime... 11/24/18 Blood Culture - Preliminary, Resulted No Growth after 48 hours. All Specime... BHARATH CHIU MD Nov 27, 2018 09:46
[2018-11-27] MEDS ORDERED: guaiFENesin SYRUP 200 MG/10 ML UDC NG PRN (20:45)
[2018-11-27 22:16] LABS: HEMATOCRIT 26.4 % (42.0-52.0); HEMOGLOBIN 9.3 g/dl (13.5-17.5); MEAN CORPUSCULAR HEMOGLOBIN 30.7 pg (27.0-33.0); MEAN CORPUSCULAR HGB CONC 35.2 g/dl (32.0-36.5); MEAN CORPUSCULAR VOLUME 87.1 fl (80.0-96.0); PLATELET COUNT, AUTOMATED 138 10^3/uL (150-450); RED BLOOD COUNT 3.03 10^6/uL (4.30-6.10)
[2018-11-27 22:45] LABS: BASOPHILS 1 % (0-4); LYMPHOCYTES 25 % (16-52); MONOCYTES 9 % (0-8); NEUTROPHILS 63 % (35-75)
[2018-11-27 22:46] LABS: PLATELET ESTIMATE DECREASED (NORMAL)
[2018-11-27] MEDS ORDERED: DEXTROMETHORPHAN 5 ML SYRUP (ROBITUSSIN PEDIATRIC COUGH) NG PRN (23:00)
[2018-11-28] VITALS (14 sets, daily range): BP systolic 123–162; BP diastolic 60–97
[2018-11-28] MEDS: HumaLOG INSULIN (NovoLOG) PER UNIT SC SCH ×5 (00:02→18:49)
[2018-11-28] MEDS: SODIUM CHLORIDE 0.9% INJ 10 ML SYR IV SCH ×2 (05:05→17:21)
--- NOTE | 2018-11-28 05:27 | IPN ---
DATE: 11/26/2018 HISTORY: The patient was admitted on the with severe upper abdominal pain with significant retroperitoneal inflammation around the duodenum and pancreas. His pain has settled down quite a bit overnight. He continues to have some output from his NG tube. His urine output has improved with his hydration. VITAL SIGNS: Show that he has had occasional temperatures up to 102.2 at midnight, but lower since. His pulse has remained somewhat tachycardiac throughout his hospital stay, but has been better today in the one teens to almost down to 100. Blood pressure has remained good. Intake and output showed that yesterday he had 4900 in with 2800 out with 1500 of that out the NG tube. PHYSICAL EXAMINATION: The patient is alert and oriented. He is not currently complaining of any pain. Heart exam shows a regular tachycardia of approximately 112. The lungs are clear. The abdomen is obese, but he has bowel sounds present and the abdomen is soft. Laboratory studies show a white count of 5, hemoglobin of 10, hematocrit of 31 and a platelet count of 89,000. His chemistry profile shows sodium of 138, potassium 4.0, chloride 105, CO2 of 28, BUN of 19, creatinine 1 and glucose of 116. His AST and ALT are both slightly elevated though the alkaline phosphatase is normal and his lipase is 390. IMPRESSION: The patient is doing well with a decrease in his tachycardia. He is more comfortable and has required less Dilaudid and is asking if he can take smaller doses, but something stronger than the Tylenol that was ordered. PLAN: We will remove the patient's Duran catheter today as his urine output has picked up. I will order some lower dose Dilaudid for pain. We will continue to monitor his urine output and NG output. [facility]
--- NOTE | 2018-11-28 05:38 | IPN ---
DATE: 11/27/2018 HISTORY: The patient was admitted on the with abdominal pain with retroperitoneal infiltrate suggestive of pancreatitis. He was doing well yesterday with a decrease in his tachycardia and increased urine output. Overnight, he became quite tachycardiac again, starting fairly suddenly around 8 o'clock last evening. He required larger doses of narcotics overnight and this was supplied by my covering partner. Repeat labs showed that his hematocrit had fallen to 27 last evening and 25 by 4 o'clock this morning. His platelet count actually increased slightly during this period of time. Because of these changes, a hospitalist consult was submitted and the patient was ordered 2 units of packed red blood cells. He also had a repeat CT scan ordered which was done at some point overnight. VITAL SIGNS: Show that his pulse has again slowed to about 120. His blood pressure is good and his pulse oximetry is also good. Intake and output showed that yesterday he had 3500 in with 2100 out. PHYSICAL EXAMINATION: The patient looks today much the same as he did yesterday. He has a nasogastric tube in place which is draining some brownish fluid. Heart exam shows a regular tachycardia. The lungs are clear. The abdomen is obese. He does have active bowel sounds and the abdomen is soft without significant tenderness. Laboratory studies today show a white count of 8, hemoglobin of 10, hematocrit of 30 and a platelet count of 114,000. This is after 2 units of packed red blood cells. His differential count showed 73% neutrophils, 16% lymphocytes and 10% monocytes. Chemistry profile showed a sodium of 135, potassium 4.1, chloride 109, CO2 of 30, BUN of 23, creatinine 1.0 and a glucose of 121. His total protein is 5.8 with an albumin of 2.5 and his lipase was up to 735 this morning. Imaging this morning showed that he had significantly increased amounts of fluid infiltrating through the retroperitoneum. Dr. Molina of radiology felt that much of this was suggestive of hemorrhage and hematoma. He did have some free fluid within the abdomen and pelvis which was not as dense as free blood. There was also a hyperdense contrast-enhanced nodule approximately 12 mm maximally in the area just inferior to the pancreatic head. He felt that this could be consistent with a developing pseudoaneurysm. IMPRESSION: The patient appeared to have had some bleeding into the retroperitoneum. My initial thought when he was admitted was that the initial episode may have been bleeding. The hyperdense area that was felt to be suggestive of a developing pseudoaneurysm was seen on his initial CT scan though this was smaller and I do wonder if he could have had a vascular anomaly or small aneurysm which led to bleeding as the cause of his initial presentation. We may never be able to determine which came first, the pancreatitis or the bleeding. He does seem to have stabilized again now with 2 units of packed red blood cells. I have ordered a PICC line so I can start him on total parenteral nutrition (TPN) and this will happen this evening. I do not want to get too far behind on his nutrition. Dr. Caicedo of interventional radiology was asked to evaluate the patient and she anticipates providing evaluation with arteriography and further intervention for possible pseudoaneurysm as needed on November 28. He will continue with his nasogastric tube and pain medications as necessary. [facility]
[2018-11-28 06:02] LABS: BASO % 0.5 % (0.0-1.0); EOS % 0.3 % (0.0-3.0); HEMATOCRIT 25.6 % (42.0-52.0); LYMPH # 1.6 10^3/uL (1.5-4.5); LYMPH % 17.9 % (24.0-44.0); MEAN CORPUSCULAR HEMOGLOBIN 31.1 pg (27.0-33.0); MEAN CORPUSCULAR HGB CONC 35.2 g/dl (32.0-36.5); MEAN CORPUSCULAR VOLUME 88.6 fl (80.0-96.0); MONO # 0.9 10^3/uL (0.0-0.8); MONO % 10.1 % (0.0-5.0); PLATELET COUNT, AUTOMATED 128 10^3/uL (150-450); RED BLOOD COUNT 2.89 10^6/uL (4.30-6.10); WHITE BLOOD COUNT 8.7 10^3/uL (4.0-10.0)
[2018-11-28 06:32] LABS: ALBUMIN 2.6 GM/DL (3.2-5.2); ALT/SGPT 86 U/L (12-78); BILIRUBIN,TOTAL 0.5 MG/DL (0.2-1.0); BLOOD UREA NITROGEN 23 MG/DL (7-18); CALCIUM LEVEL 7.4 MG/DL (8.5-10.1); CARBON DIOXIDE LEVEL 29 MEQ/L (21-32); CHLORIDE LEVEL 106 MEQ/L (98-107); CREATININE FOR GFR 0.88 MG/DL (0.70-1.30); GLOMERULAR FILTRATION RATE > 60.0 (>60); GLUCOSE, FASTING 188 MG/DL (70-100); POTASSIUM SERUM 3.9 MEQ/L (3.5-5.1); SODIUM LEVEL 141 MEQ/L (136-145); TOTAL PROTEIN 5.5 GM/DL (6.4-8.2)
[2018-11-28] MEDS: LR 1,000 ML IV SCH (06:36)
[2018-11-28] MEDS ORDERED: SODIUM CHLORIDE NASAL 0.65% SPRAY BTL (OCEAN) PRN (08:15)
[2018-11-28] MEDS ORDERED: CETIRIZINE (ZyrTEC) 10 MG TAB PO ONE (08:15)
--- NOTE | 2018-11-28 08:59 | IPNPDOC ---
Date Seen The patient was seen on 11/28/18. Progress Note SUBJECTIVE: Pt c/o "hacking cough, " nasal congestion, post nasal drip and congestion headache. no improvement with mucinex or robitussin. pt requesting "something to get this under control." NG tube in place. Telemetry overnight: no AFlutter, Afib, AVNRT, MAT, or AVRT. Sinus tachycardia 130-150bpm. He denies any chest pain, sob, pressure, tightness, lightheadedness,near syncope. He admits to chronic sinus tachycardia, denies ETOH abuse and drinks 8/year, and has no pain currently. Repeat CT abd: pancreatic pseudo-aneurysm s/p 2units rbc transfusion acute blood loss anemia PHYSICAL EXAMINATION: VITAL SIGNS: Please see below. GENERAL APPEARANCE: obese male, anicteric no jaundice no conversational dyspnea HEENT: no JVD, oral mucosa moist, NGT intact RESPIRATORY: LCTA no W/R/R CARDIOVASCULAR: heart - tachycardic, regular, no murmur ABDOMEN: soft, bowel sound is LLQ present; tenderness along RUQ; no rebound, no rigidity, no guarding EXTREMITIES: no edema SKIN: no rash LABORATORY DATA, IMAGING STUDIES, MICROBIOLOGY: Please see below. CT ABD/PEL:Impression: 1. Severe phlegmonous and inflammatory changes in the right upper quadrant and right mid to lower abdomen as described above. Differential diagnosis includes pancreatitis as well as duodenitis and possible perforated duodenal ulcer without free air. KUB: negative for free air US: no gallstones ASSESSMENT/PLAN: 43 yo male admitted with pancreatitis - unclear etiology as patient had negative US gallbladder. He was clinically improving with his pancreatitis until approx 1930 when he passed large flatus and had increased abdomen pain and tachycardia. Abdomen pain was relieved with pain medications (dilaudid) but he continued to be tachycardic. Lab evaluation showed significant drop in hemoglobin but he denies melena, hematochezia and NGT shows no blood. patient states no CP, no SOB, but has some nausea, no vomiting, continues with intermittent "gas pain" "abdomen pain". No improvement of tachycardia with IVF. He is not hypotensive with tachycardia. Sinus Tachycardia -in the setting of hemorrhagic pancreatitis, pseudoaneurysm, acute blood loss due to GI bleed -pt denies ETOH abuse or history of withdrawal -pt has no family or personal history of DVT, PE. received lovenox previously Acute Hemorrhagic Pancreatitis -NPO -TPN and IV Fluids, managed by primary team -formation of pseudoaneurysm to be embolized by IR today. 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 VS, I&O, 24H, Fishbone Vital Signs/I&O Vital Signs Date Time Temp Pulse Resp B/P (MAP) Pulse Ox O2 Delivery O2 Flow Rate FiO2 11/28/18 08:06 99.9 115 20 93 11/28/18 06:00 162/85 (110) 11/28/18 04:00 1.0 11/27/18 04:00 Nasal Cannula I&O- Last 24 Hours up to 6 AM 11/28/18 06:00 Intake Total 3080 ml Output Total 3050 ml Balance 30 ml Laboratory Data 24H LABS Laboratory Tests 2 11/27/18 10:56: Nucleated Red Blood Cells % (auto) 0.0, Neutrophils 73, Lymphocytes (Manual) 16, Monocytes (Manual) 10H, Atypical Lymphocytes 1, Platelet Estimate , Polychromasia 1+, Poikilocytosis 1+ 11/27/18 11:58: Bedside Glucose (Misc Panel) 122H 11/27/18 18:00: Bedside Glucose (Misc Panel) 134H 11/27/18 22:08: Nucleated Red Blood Cells % (auto) 0.0, Neutrophils 63, Lymphocytes (Manual) 25, Monocytes (Manual) 9H, Platelet Estimate DECREASED, Band Neutrophils 2, Basophils (Manual) 1, Red Blood Cell Morphology NORMAL 11/27/18 23:57: Bedside Glucose (Misc Panel) 170H 11/28/18 05:38: Immature Granulocyte % (Auto) 2.2, White Blood Count 8.7, Red Blood Count 2.89L, Hemoglobin 9.0L, Hematocrit 25.6L, Mean Corpuscular Volume 88.6, Mean Corpuscular Hemoglobin 31.1, Mean Corpuscular Hemoglobin Concent 35.2, Red Cell Distribution Width 13.2, Platelet Count 128L, Neutrophils (%) (Auto) 69.0H, Lymphocytes (%) (Auto) 17.9L, Monocytes (%) (Auto) 10.1H, Eosinophils (%) (Auto) 0.3, Basophils (%) (Auto) 0.5, Neutrophils # (Auto) 6.0, Lymphocytes # (Auto) 1.6, Monocytes # (Auto) 0.9H, Eosinophils # (Auto) 0.0, Basophils # (Auto) 0.0, Nucleated Red Blood Cells % (auto) 0.2H, Anion Gap 6L, Glomerular Filtration Rate > 60.0, Blood Urea Nitrogen 23H, Creatinine 0.88, Sodium Level 141, Potassium Level 3.9, Chloride Level 106, Carbon Dioxide Level 29, Calcium Level 7.4L, Aspartate Amino Transf (AST/SGOT) 50H, Alanine Aminotransferase (ALT/SGPT) 86H, Alkaline Phosphatase 39L, Total Bilirubin 0.5, Total Protein 5.5L, Albumin 2.6L, Albumin/Globulin Ratio 0.90L CBC/BMP Laboratory Tests 11/27/18 10:56 Red Blood Count 3.46 L, Mean Corpuscular Volume 86.4, Mean Corpuscular Hemoglobin 30.3, Mean Corpuscular Hemoglobin Concent 35.1, Red Cell Distribution Width 12.8 11/27/18 22:08 Red Blood Count 3.03 L, Mean Corpuscular Volume 87.1, Mean Corpuscular Hemoglobin 30.7, Mean Corpuscular Hemoglobin Concent 35.2, Red Cell Distribution Width 13.2 11/28/18 05:38 Red Blood Count 2.89 L, Mean Corpuscular Volume 88.6, Mean Corpuscular Hemoglobin 31.1, Mean Corpuscular Hemoglobin Concent 35.2, Red Cell Distribution Width 13.2, Neutrophils (%) (Auto) 69.0 H, Lymphocytes (%) (Auto) 17.9 L, Monocytes (%) (Auto) 10.1 H, Eosinophils (%) (Auto) 0.3, Basophils (%) (Auto) 0.5, Neutrophils # (Auto) 6.0, Lymphocytes # (Auto) 1.6, Monocytes # (Auto) 0.9 H, Eosinophils # (Auto) 0.0, Basophils # (Auto) 0.0, Calcium Level 7.4 L, Aspartate Amino Transf (AST/SGOT) 50 H, Alanine Aminotransferase (ALT/SGPT) 86 H, Alkaline Phosphatase 39 L, Total Bilirubin 0.5, Total Protein 5.5 L, Albumin 2.6 L Microbiology Microbiology 11/24/18 Blood Culture - Preliminary, Resulted No Growth after 72 hours. All specime... 11/24/18 Blood Culture - Preliminary, Resulted No Growth after 72 hours. All specime... BHARATH CHIU MD Nov 28, 2018 08:59
[2018-11-28] MEDS: ACETAMINOPHEN TAB 650MG DOSE (2X325MG) PO PRN (10:00)
[2018-11-28] MEDS: OXYMETAZOLINE NASAL SPRAY (AFRIN) SCH ×2 (12:34→21:44)
[2018-11-28] MEDS ORDERED: ISOVUE-300 61% 50ML VIAL (Q9967) As Ordered ONE ×3 (12:49→14:49)
[2018-11-28] MEDS ORDERED: LIDOCAINE 1% MDV 20ML VIAL As Ordered ONE (12:49)
[2018-11-28] MEDS ORDERED: diphenhydrAMINE INJ 50MG/ML VIAL (J1200) As Ordered ONE (12:50)
[2018-11-28] MEDS ORDERED: fentaNYL 100 MCG/2 ML INJECTION (J3010) As Ordered ONE (12:50)
[2018-11-28] MEDS ORDERED: MIDAZOLAM INJ 2 MG/2 ML VIAL (J2250) As Ordered ONE (12:50)
--- NOTE | 2018-11-28 13:49 | IPNPDOC ---
Subjective Date Seen The patient was seen on 11/28/18. Subjective Chief Complaint/HPI ANEMIA. ABDOMINAL PAIN. psa MESENTERC Objective Physical Examination Heart Exam: Positive: Tachycardic Abdomen Exam: Positive: Tenderness Other physical findings BREATHING NORMALLY AT REST. ASA III MALAMPATTI II. NO PROBLEMS WITH SEDATION BEFORE. NO JENNIFER Assessment /Plan Assessment MESENTERIC ANGIOGRAM AND EMBOLIZATION IF APPROPRIATE. MODERATE SEDATION Plan/VTE VTE Prophylaxis Ordered?: No VS, I&O, 24H, Fishbone Vital Signs/I&O Vital Signs Date Time Temp Pulse Resp B/P (MAP) Pulse Ox O2 Delivery O2 Flow Rate FiO2 11/28/18 13:27 99.6 114 18 92 11/28/18 12:33 143/85 (104) 11/28/18 04:00 1.0 11/27/18 04:00 Nasal Cannula I&O- Last 24 Hours up to 6 AM 11/28/18 06:00 Intake Total 3080 ml Output Total 3050 ml Balance 30 ml Laboratory Data 24H LABS Laboratory Tests 2 11/27/18 18:00: Bedside Glucose (Misc Panel) 134H 11/27/18 22:08: Nucleated Red Blood Cells % (auto) 0.0, Neutrophils 63, Band Neutrophils 2, Lymphocytes (Manual) 25, Monocytes (Manual) 9H, Basophils (Manual) 1, Platelet Estimate DECREASED, Red Blood Cell Morphology NORMAL 11/27/18 23:57: Bedside Glucose (Misc Panel) 170H 11/28/18 05:38: Nucleated Red Blood Cells % (auto) 0.2H, Immature Granulocyte % (Auto) 2.2, White Blood Count 8.7, Red Blood Count 2.89L, Hemoglobin 9.0L, Hematocrit 25.6L, Mean Corpuscular Volume 88.6, Mean Corpuscular Hemoglobin 31.1, Mean Corpuscular Hemoglobin Concent 35.2, Red Cell Distribution Width 13.2, Platelet Count 128L, Neutrophils (%) (Auto) 69.0H, Lymphocytes (%) (Auto) 17.9L, Monocytes (%) (Auto) 10.1H, Eosinophils (%) (Auto) 0.3, Basophils (%) (Auto) 0.5, Neutrophils # (Auto) 6.0, Lymphocytes # (Auto) 1.6, Monocytes # (Auto) 0.9H, Eosinophils # (Auto) 0.0, Basophils # (Auto) 0.0, Anion Gap 6L, Glomerular Filtration Rate > 60.0, Blood Urea Nitrogen 23H, Creatinine 0.88, Sodium Level 141, Potassium Level 3.9, Chloride Level 106, Carbon Dioxide Level 29, Calcium Level 7.4L, Aspartate Amino Transf (AST/SGOT) 50H, Alanine Aminotransferase (ALT/SGPT) 86H, Alkaline Phosphatase 39L, Total Bilirubin 0.5, Total Protein 5.5L, Albumin 2.6L, Albumin/Globulin Ratio 0.90L 11/28/18 12:40: Bedside Glucose (Misc Panel) 180H CBC/BMP Laboratory Tests 11/27/18 22:08 Red Blood Count 3.03 L, Mean Corpuscular Volume 87.1, Mean Corpuscular Hemoglobin 30.7, Mean Corpuscular Hemoglobin Concent 35.2, Red Cell Distribution Width 13.2 11/28/18 05:38 Red Blood Count 2.89 L, Mean Corpuscular Volume 88.6, Mean Corpuscular Hemoglobin 31.1, Mean Corpuscular Hemoglobin Concent 35.2, Red Cell Distribution Width 13.2, Neutrophils (%) (Auto) 69.0 H, Lymphocytes (%) (Auto) 17.9 L, Mo nocytes (%) (Auto) 10.1 H, Eosinophils (%) (Auto) 0.3, Basophils (%) (Auto) 0.5, Neutrophils # (Auto) 6.0, Lymphocytes # (Auto) 1.6, Monocytes # (Auto) 0.9 H, Eosinophils # (Auto) 0.0, Basophils # (Auto) 0.0, Calcium Level 7.4 L, Aspartate Amino Transf (AST/SGOT) 50 H, Alanine Aminotransferase (ALT/SGPT) 86 H, Alkaline Phosphatase 39 L, Total Bilirubin 0.5, Total Protein 5.5 L, Albumin 2.6 L Microbiology Microbiology 11/24/18 Blood Culture - Preliminary, Resulted No Growth after 72 hours. All specime... 11/24/18 Blood Culture - Preliminary, Resulted No Growth after 72 hours. All specime... JENELLE CARDOZO MD Nov 28, 2018 13:49
--- NOTE | 2018-11-28 15:56 | ROOPDOC ---
[facility] Report Of Operation Report of Operation DATE OF PROCEDURE: 11/28/18 PREPROCEDURE DIAGNOSES: pancreatitis, PSA POSTPROCEDURE DIAGNOSES: pancreatitis, PSA PROCEDURE: mesenteric angiogram SURGEON: Marifer ANESTHESIA: moderate sedation ESTIMATED BLOOD LOSS: Approximately [5] mL. 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 No PSA or active extravasation. No embolization indicated JENELLE CARDOZO MD Nov 28, 2018 15:56
--- NOTE | 2018-11-28 16:06 | IPN ---
DATE: 11/28/2018 HISTORY: The patient was admitted on 11/24/2018 with onset of epigastric pain. CT scan showed inflammatory changes around the head of the pancreas and the duodenum extending to the right. He was treated like pancreatitis, though his amylase and lipase were normal. He has a nasogastric (NG) tube in place. He initially received fluid hydration. He had evidence for some retroperitoneal bleeding yesterday morning and the night before with a drop in his hematocrit and a CT showing increased retroperitoneal fluid consistent with blood. He is to undergo an arteriogram today to look for evidence of a bleeding source around the pancreas. Vital signs show that his pulse is a little better today, generally down in the 100s-110s. He has had less pain. His blood pressure is good. Intake and output show that yesterday he had 2500 in with 2700 out. He had 1000 out of his NG tube with 1600 of urine output. PHYSICAL EXAMINATION: The patient is lying quietly in bed this morning. He is alert and oriented. He is not having significant pain right at the moment. Heart exam shows a regular rhythm at approximately 110. The lungs are clear. The abdomen is protuberant. He does have some bowel sounds present. The abdomen is full but soft and without any significant tenderness. LABORATORY STUDIES: The patient's CBC this morning shows a white count of 9 with a differential showing 69% neutrophils, 18% lymphocytes, and 10% monocytes. His hemoglobin is 9 with a hematocrit of 26 and A platelet count of 128,000. Chemistry profile shows a sodium of 141, potassium 3.9, chloride 106, CO2 of 29, BUN of 23, creatinine 0.88, and a glucose of 188. AST is 50 with an ALT of 86. Total protein is 5.5 with an albumin of 2.6. IMPRESSION: The patient is doing well with no strong evidence for any further bleeding. His pulse is slowly coming down and he is more comfortable today. PLAN: He is due for an arteriogram by Dr. 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 He is on total parenteral nutrition (TPN) and this will be continued. [facility]
[2018-11-28] MEDS: PANTOPRAZOLE 40MG INJ (PROTONIX) (C9113) IV SCH (17:02)
--- NOTE | 2018-11-28 17:20 | REP ---
IR mesenteric angiogram IR moderate sedation Clinical Information: Pancreatitis. Mesenteric inflammation. Concern for pseudoaneurysm on CT with contrast Physician[s]: Dr LiueProcedure: The patient was advised of the benefits, risks, and alternatives of the procedure and informed consent was obtained.A time out was performed with verification of the patient's name, MRN, site of procedure, and type of procedure to be performed. The patient was positioned in the supine position on the angiographic table. The site was prepped and draped in the usual sterile fashion.Moderate sedation was performed by the physician including the presence of an independent trained observer that assisted in monitoring the patient's level of consciousness and physiological status. Following the administration of Fentanyl and Versed, the physician spent 60 minutes of continuous [id number] time with the patient. A talent scout radiograph reveals an NG catheter in place. The right femoral artery was accessed with a micropuncture kit. A Ligandal wire was advanced into the aorta. The micropuncture sheath was exchanged over the wire for a 5-Algerian vascular sheath. A 5-Algerian SOS catheter was advanced over the wire and used to catheterize the celiac artery. With the diagnostic catheter located in the celiac artery, an arteriogram was performed. This demonstrates filling of the splenic artery and no significant antegrade filling of the common hepatic arteries from the celiac artery. Patent portal vein. The diagnostic catheter was used to catheterize the superior mesenteric artery and an arteriogram was performed. This demonstrates retrograde filling of the gastroduodenal artery and proper hepatic artery through a hypertrophied pancreaticoduodenal arcade and gastroduodenal artery. No pseudo aneurysm seen. No active extravasation. No pooling of contrast. The catheter was removed over a wire . A 5-Algerian Mynx device was used to close the right groin arteriotomy and the sheath was removed. Hemostasis achieved. A sterile dressing was applied to the site. Patient tolerated the procedure well and was transferred to the inpatient unit in stable condition. Complications: None Estimated blood loss: Less than 5 ml Impression: Mesenteric angiogram demonstrates celiac artery stenosis and retrograde filling of the common and proper hepatic artery through gastroduodenal artery and hypertrophied pancreaticoduodenal arcade. No aneurysms, pseudoaneurysm or active extravasation is seen in the mesenteric bed. Thank you this referral Electronically Signed by Lissy Caicedo MD 11/28/2018 05:18 P
[2018-11-28] MEDS ORDERED: FAT EMULSION IV 20% 500 ML IV SCH (18:00)
[2018-11-28] MEDS ORDERED: AMINO AC/ELECTROLYTE/DEX/CALC 2,000 ML IV SCH (18:00)
--- NOTE | 2018-11-28 20:35 | REP ---
PICC line insertion under ultrasound guidance. The procedure was performed by GRISEL Briscoe, under the direct supervision of Dr. Mcmillan. The risks and benefits of the procedure were explained to the patient and informed consent was obtained the verbally and written. Directly prior to the start of the procedure, a formal timeout was completed in the procedure room. The right basilic vein was localized using ultrasound guidance. The skin was prepped and draped in the sterile fashion. 3 ml 1% lidocaine was used as a local anesthetic. Using ultrasound guidance the right basilic vein was cannulated and a 0.018 guidewire was inserted and advanced to the SVC using fluoroscopic guidance. The needle was removed and a 5.5 Malay dilator and peel-away sheath was inserted over the guidewire. A 5.5 Malay double lumen catheter was cut to the length of 40 cm. The dilator was removed and the catheter was inserted over the guide wire with the tip ending in the SVC. The peel-away sheath was removed and the catheter was flushed with heparinized saline as per hospital protocol. The catheter was affixed to the skin and a sterile dressing was applied. The patient tolerated the procedure well and there were no immediate complications. 0.2 minutes of fluoroscopy time was utilized for this procedure. Some fluoroscopic images are performed with last image hold technology. These images require no additional radiation. Reviewed by GRISEL Kenny 11/27/2018 05:19 P Electronically Signed by Arden Mcmillan MD 11/28/2018 08:26 P
[2018-11-29] VITALS (12 sets, daily range): BP systolic 121–157; BP diastolic 74–92
[2018-11-29] MEDS: HumaLOG INSULIN (NovoLOG) PER UNIT SC SCH ×6 (00:45→23:58)
[2018-11-29] MEDS: LR 1,000 ML IV SCH (00:45)
[2018-11-29] MEDS ORDERED: CHLORASEPTIC SPRAY MT PRN (02:00)
[2018-11-29] MEDS: SODIUM CHLORIDE 0.9% INJ 10 ML SYR IV SCH ×2 (05:59→18:05)
[2018-11-29 06:26] LABS: HEMOGLOBIN 9.1 g/dl (13.5-17.5); MEAN CORPUSCULAR HEMOGLOBIN 30.4 pg (27.0-33.0); MEAN CORPUSCULAR HGB CONC 33.7 g/dl (32.0-36.5); MEAN CORPUSCULAR VOLUME 90.3 fl (80.0-96.0); PLATELET COUNT, AUTOMATED 207 10^3/uL (150-450); RED BLOOD COUNT 2.99 10^6/uL (4.30-6.10); WHITE BLOOD COUNT 11.6 10^3/uL (4.0-10.0)
[2018-11-29 06:57] LABS: BLOOD UREA NITROGEN 17 MG/DL (7-18); CALCIUM LEVEL 7.8 MG/DL (8.5-10.1); CARBON DIOXIDE LEVEL 30 MEQ/L (21-32); CHLORIDE LEVEL 106 MEQ/L (98-107); CREATININE FOR GFR 0.87 MG/DL (0.70-1.30); GLOMERULAR FILTRATION RATE > 60.0 (>60); GLUCOSE, FASTING 145 MG/DL (70-100); POTASSIUM SERUM 3.8 MEQ/L (3.5-5.1); SODIUM LEVEL 141 MEQ/L (136-145)
--- NOTE | 2018-11-29 07:47 | IPNPDOC ---
Date Seen The patient was seen on 11/29/18. Progress Note SUBJECTIVE: s/p mesenteric angiogram 11/28/18 with no obvious bleeding. no embolization performed.Overnight, pt had 500ml output via NG tube. c/o sinus congestion and postnasal drip which improved with afrin and zyrtec. no abd pain, nausea. afebrile. despite sinus tachycardia, blood pressure is maintained, and pt has no c/o cp, sob, palpitations, lightheadedness, or near syncope.Tele overnight sinus tach PHYSICAL EXAMINATION: VITAL SIGNS: Please see below. GENERAL APPEARANCE: obese male, anicteric no jaundice no conversational dyspnea HEENT: no JVD, oral mucosa moist, NGT intact RESPIRATORY: LCTA no W/R/R CARDIOVASCULAR: heart - tachycardic, regular, no murmur ABDOMEN: soft, bowel sound is LLQ present; tenderness along RUQ; no rebound, no rigidity, no guarding EXTREMITIES: no edema SKIN: no rash LABORATORY DATA, IMAGING STUDIES, MICROBIOLOGY: Please see below. CT ABD/PEL:Impression: 1. Severe phlegmonous and inflammatory changes in the right upper quadrant and right mid to lower abdomen as described above. Differential diagnosis includes pancreatitis as well as duodenitis and possible perforated duodenal ulcer without free air. KUB: negative for free air US: no gallstones ASSESSMENT/PLAN: 43 yo male admitted with pancreatitis - unclear etiology as patient had nega tive US gallbladder. He was clinically improving with his pancreatitis until approx 1930 when he passed large flatus and had increased abdomen pain and tachycardia. Abdomen pain was relieved with pain medications (dilaudid) but he continued to be tachycardic. Lab evaluation showed significant drop in hemoglobin but he denies melena, hematochezia and NGT shows no blood. patient states no CP, no SOB, but has some nausea, no vomiting, continues with intermittent "gas pain" "abdomen pain". No improvement of tachycardia with IVF. He is not hypotensive with tachycardia. Sinus Tachycardia -in the setting of hemorrhagic pancreatitis, pseudoaneurysm, acute blood loss due to GI bleed -pt denies ETOH abuse or history of withdrawal -pt has no family or personal history of DVT, PE. received lovenox previously -vitals maintained and asymptomatic, TSH wnl -if symptomatic with hypoxia , consider r/o PE with CT chest -if symptomatic with hypotension, consider rate control. Acute Hemorrhagic Pancreatitis -NPO -TPN and IV Fluids, managed by primary team -formation of pseudoaneurysm -s/p mesenteric angiogram 11/28/18, no embolization needed Pancreatic Pseudoaneurysm due to hemorrhagic pancreatiits -IR consulted by primary service -npo -s/p mesenteric angiogram 11/28/18, no embolization needed Obesity BMI 41 -complicating care -monitor for grace -gentle pain mgt, avoid oversedation Acute blood loss anemia -due to hemorrhagic pancreatitis -s/p 2units rbc transfusion -asymptomatic and denies chest pain,sob, lightheadedness, or dizziness Acute GI bleed -due to hemorrhagic pancreatitis -npo on tpn, ivfluids -managed by primary team Rhinitis -trial of afrin nasal spray and zyrtec DVT prophylaxis: compression stockings. VS, I&O, 24H, Fishbone Vital Signs/I&O Vital Signs Date Time Temp Pulse Resp B/P (MAP) Pulse Ox O2 Delivery O2 Flow Rate FiO2 11/29/18 06:00 115 18 154/88 (110) 94 11/29/18 04:00 99.9 2.0 11/27/18 04:00 Nasal Cannula I&O- Last 24 Hours up to 6 AM 11/29/18 06:00 Intake Total 3568 ml Output Total 2720 ml Balance 848 ml Laboratory Data 24H LABS Laboratory Tests 2 11/28/18 12:40: Bedside Glucose (Misc Panel) 180H 11/28/18 16:45: Bedside Glucose (Misc Panel) 146H 11/29/18 00:43: Bedside Glucose (Misc Panel) 169H 11/29/18 05:55: Bedside Glucose (Misc Panel) 155H 11/29/18 06:05: Nucleated Red Blood Cells % (auto) 0.2H, Anion Gap 5L, Glomerular Filtration Rate > 60.0, Blood Urea Nitrogen 17, Creatinine 0.87, Sodium Level 141, Potassium Level 3.8, Chloride Level 106, Carbon Dioxide Level 30, Calcium Level 7.8L CBC/BMP Laboratory Tests 11/29/18 06:05 Red Blood Count 2.99 L, Mean Corpuscular Volume 90.3, Mean Corpuscular Hemoglobin 30.4, Mean Corpuscular Hemoglobin Concent 33.7, Red Cell Distribution Width 13.0, Calcium Level 7.8 L Microbiology Microbiology 11/24/18 Blood Culture - Preliminary, Resulted No Growth after 72 hours. All specime... 11/24/18 Blood Culture - Preliminary, Resulted No Growth after 72 hours. All specime... BHARATH CHIU MD Nov 29, 2018 07:36
[2018-11-29] MEDS: ACETAMINOPHEN TAB 650MG DOSE (2X325MG) PO PRN ×2 (08:23→14:49)
[2018-11-29] MEDS: OXYMETAZOLINE NASAL SPRAY (AFRIN) SCH ×2 (08:23→20:17)
[2018-11-29] MEDS ORDERED: CETIRIZINE (ZyrTEC) 10 MG TAB PO ONE (08:30)
[2018-11-29] MEDS: PANTOPRAZOLE 40MG INJ (PROTONIX) (C9113) IV SCH (14:49)
--- NOTE | 2018-11-29 17:54 | IPN ---
DATE: 11/29/2018 HISTORY: The patient was admitted with severe upper abdominal pain with CT findings suggesting pancreatitis, though his amylase and lipase were normal. He subsequently had a slight bump in his lipase to the 700s. He, 2 days ago, had evidence of fall in his hematocrits with increased fluid in the retroperitoneum consistent with some hemorrhage. There was a suggestion of a possible pseudoaneurysm on his CT scan and yesterday he had an arteriogram which showed no evidence of pseudoaneurysm and no interventions were performed beyond the arteriography. Today the patient is sitting up in a chair. He has not had any pain medicines since yesterday. He is feeling better with positive bowel movement but no definite flatus. Vital signs: The patient had a T-max of 100.4 this morning. His pulse has run between 107 and 124 over the last 24 hours. Blood pressure is good and his oxygen saturation is normal. Intake and output: Yesterday he had 3500 in with 2700 out. He had 1100 out of his nasogastric (NG) tube. PHYSICAL EXAMINATION: The patient is sitting up in the chair at bedside. NG tube is in place draining a small amount of lightly brownish fluid. He is alert, oriented and cooperative. He appears comfortable with normal respiratory rate. Heart exam shows a regular mild tachycardia. The lungs are clear. The abdomen is obese, but he has active bowel sounds, and the abdomen is soft and he denies any tenderness. LABORATORY STUDIES: Include a CBC showing a white count of 12, hemoglobin of 9, hematocrit of 27 and a platelet count of 207,000, which is significantly improved from the last several days. His chemistry profile shows a sodium of 141, potassium 3.8, chloride 106, CO2 of 30, BUN of 17, creatinine 0.87 and a glucose of 145. Blood cultures from 11/24/2018 are no growth on final. IMPRESSION: Patient is stable today and feeling better with no need for pain medication over the past 24 hours. He remains mildly tachycardiac but his other vitals are normal. PLAN: We will begin a trial of clamping his NG tube today. He had less out overnight than previously. We will clamp the tube for 6 hours, and if his output after this period of time is less than 150 mL, we will remove his NG tube but keep him nothing by mouth (n.p.o.) to monitor to ensure that he tolerates his own fluids. We will continue the total parenteral nutrition (TPN), and I will stop the Ringer's lactate. MTDD
[2018-11-29] MEDS ORDERED: FAT EMULSION IV 20% 500 ML IV SCH (18:00)
[2018-11-29] MEDS ORDERED: AMINO AC/ELECTROLYTE/DEX/CALC 2,000 ML IV SCH (18:00)
[2018-11-30] VITALS (7 sets, daily range): BP systolic 140–157; BP diastolic 77–101
[2018-11-30 05:11] LABS: HEMATOCRIT 26.9 % (42.0-52.0); HEMOGLOBIN 9.2 g/dl (13.5-17.5); MEAN CORPUSCULAR HEMOGLOBIN 30.1 pg (27.0-33.0); MEAN CORPUSCULAR HGB CONC 34.2 g/dl (32.0-36.5); MEAN CORPUSCULAR VOLUME 87.9 fl (80.0-96.0); PLATELET COUNT, AUTOMATED 285 10^3/uL (150-450); RED BLOOD COUNT 3.06 10^6/uL (4.30-6.10); WHITE BLOOD COUNT 14.3 10^3/uL (4.0-10.0)
[2018-11-30 05:26] LABS: ALBUMIN 2.8 GM/DL (3.2-5.2); ALT/SGPT 171 U/L (12-78); BILIRUBIN,TOTAL 2.2 MG/DL (0.2-1.0); BLOOD UREA NITROGEN 16 MG/DL (7-18); CARBON DIOXIDE LEVEL 29 MEQ/L (21-32); CHLORIDE LEVEL 105 MEQ/L (98-107); CREATININE FOR GFR 0.98 MG/DL (0.70-1.30); GLOMERULAR FILTRATION RATE > 60.0 (>60); GLUCOSE, FASTING 145 MG/DL (70-100); LIPASE 1413 U/L (73-393); SODIUM LEVEL 140 MEQ/L (136-145); TOTAL PROTEIN 6.4 GM/DL (6.4-8.2)
[2018-11-30] MEDS: HumaLOG INSULIN (NovoLOG) PER UNIT SC SCH ×3 (05:42→17:30)
[2018-11-30] MEDS: SODIUM CHLORIDE 0.9% INJ 10 ML SYR IV SCH ×2 (05:43→17:31)
[2018-11-30] MEDS: ATENOLOL 12.5MG PER 1/2 TABLET PO SCH ×4 (09:00→20:31)
[2018-11-30] MEDS: OXYMETAZOLINE NASAL SPRAY (AFRIN) SCH ×2 (09:00→20:32)
[2018-11-30] MEDS: FAMOTIDINE IV BAG 20 MG in APPROPRIATE DILUENT 1 EA IV SCH ×2 (09:10→20:32)
[2018-11-30] MEDS: ENOXAPARIN 40 MG/0.4 ML SYRINGE (J1650) SC SCH (10:51)
[2018-11-30] MEDS: PANTOPRAZOLE 40MG INJ (PROTONIX) (C9113) IV SCH (15:43)
--- NOTE | 2018-11-30 16:25 | IPNPDOC ---
Date Seen The patient was seen on 11/30/18. Progress Note SUBJECTIVE: Pt had low grade temp 100-100.2, but no c/o chills, abd pain, nausea, vomiting. despite sinus tach and HTN, no c/o palpitations, sob, chest pain, pressure,tightness, dizziness,or lightheadedness. He says his nasal congestion is improved. He ambulates well without sob, or dizziness. PHYSICAL EXAMINATION: VITAL SIGNS: Please see below. GENERAL APPEARANCE: obese male, anicteric no jaundice no conversational dyspnea HEENT: no JVD, oral mucosa moist, NGT intact RESPIRATORY: LCTA no W/R/R CARDIOVASCULAR: heart - tachycardic, regular, no murmur ABDOMEN: soft, nontender nondistended (+) bs no rebound, no rigidity, no guarding EXTREMITIES: no edema SKIN: no rash LABORATORY DATA, IMAGING STUDIES, MICROBIOLOGY: Please see below. CT ABD/PEL:Impression: 1. Severe phlegmonous and inflammatory changes in the right upper quadrant and right mid to lower abdomen as described above. Differential diagnosis includes pancreatitis as well as duodenitis and possible perforated duodenal ulcer without free air. KUB: negative for free air US: no gallstones ASSESSMENT/PLAN: 43 yo male admitted with pancreatitis - unclear etiology as patient had negative US gallbladder. He was clinically improving with his pancreatitis until approx 1930 when he passed large flatus and had increased abdomen pain and tachycardia. Abdomen pain was relieved with pain medications (dilaudid) but he continued to be tachycardic. Lab evaluation showed significant drop in hemoglobin but he denies melena, hematochezia and NGT shows no blood. patient states no CP, no SOB, but has some nausea, no vomiting, continues with intermittent "gas pain" "abdomen pain". No improvement of tachycardia with IVF. He is not hypotensive with tachycardia. Sinus Tachycardia -in the setting of hemorrhagic pancreatitis, pseudoaneurysm, acute blood loss due to GI bleed -pt denies ETOH abuse or history of withdrawal -pt has no family or personal history of DVT, PE. received lovenox previously -vitals maintained and asymptomatic, TSH wnl -if symptomatic with hypoxia , consider r/o PE with CT chest -due to slightly high blood pressure, low dose atenolol. Acute Hemorrhagic Pancreatitis -NPO -TPN and IV Fluids, managed by primary team -formation of pseudoaneurysm -s/p mesenteric angiogram 11/28/18, no embolization needed Pancreatic Pseudoaneurysm due to hemorrhagic pancreatiits -IR consulted by primary service -npo -s/p mesenteric angiogram 11/28/18, no embolization needed HTN -uncontrolled -low dose atenolol for sinus tach also -may resume home avapro. Obesity BMI 41 -complicating care -monitor for grace -gentle pain mgt, avoid oversedation Acute blood loss anemia -due to hemorrhagic pancreatitis -s/p 2units rbc transfusion -asymptomatic and denies chest pain,sob, lightheadedness, or dizziness Acute GI bleed -due to hemorrhagic pancreatitis -npo on tpn, ivfluids -managed by primary team Rhinitis -trial of afrin nasal spray and zyrtec DVT prophylaxis: compression stockings. VS, I&O, 24H, Fishbone Vital Signs/I&O Vital Signs Date Time Temp Pulse Resp B/P (MAP) Pulse Ox O2 Delivery O2 Flow Rate FiO2 11/30/18 12:00 99.9 96 18 154/97 (116) 97 11/30/18 07:57 2.0 11/27/18 04:00 Nasal Cannula I&O- Last 24 Hours up to 6 AM 11/30/18 06:00 Intake Total 1760 ml Output Total 2225 ml Balance -465 ml Laboratory Data 24H LABS Laboratory Tests 2 11/29/18 17:44: Bedside Glucose (Misc Panel) 163H 11/29/18 23:53: Bedside Glucose (Misc Panel) 154H 11/30/18 04:42: Nucleated Red Blood Cells % (auto) 0.0, Anion Gap 6L, Glomerular Filtration Rate > 60.0, Blood Urea Nitrogen 16, Creatinine 0.98, Sodium Level 140, Potassium Level 4.0, Chloride Level 105, Carbon Dioxide Level 29, Calcium Level 8.0L, Aspartate Amino Transf (AST/SGOT) 119H, Alanine Aminotransferase (ALT/SGPT) 171H, Alkaline Phosphatase 67, Total Bilirubin 2.2#H, Total Protein 6.4, Albumin 2.8L, Albumin/Globulin Ratio 0.78L, Lipase 1413H 11/30/18 07:58: Lactic Acid Level 1.1 11/30/18 12:42: Bedside Glucose (Misc Panel) 166H CBC/BMP Laboratory Tests 11/30/18 04:42 Red Blood Count 3.06 L, Mean Corpuscular Volume 87.9, Mean Corpuscular Hemoglobin 30.1, Mean Corpuscular Hemoglobin Concent 34.2, Red Cell Distribution Width 13.2, Calcium Level 8.0 L, Aspartate Amino Transf (AST/SGOT) 119 H, Alanine Aminotransferase (ALT/SGPT) 171 H, Alkaline Phosphatase 67, Total Bilirubin 2.2 #H, Total Protein 6.4, Albumin 2.8 L Microbiology Microbiology 11/24/18 Blood Culture - Final, Complete NO GROWTH AFTER 5 DAYS 11/24/18 Blood Culture - Final, Complete NO GROWTH AFTER 5 DAYS BHARATH CHIU MD Nov 30, 2018 16:25
[2018-11-30] MEDS ORDERED: MULTIVITAMIN -ADULT INJECTION 10 ML, CR/CU/SE/MN/ZN INJ 1 ML in AMINO AC/ELECTROLYTE/DE... IV SCH (18:00)
[2018-11-30] MEDS ORDERED: FAT EMULSION IV 20% 500 ML IV SCH (18:00)
--- NOTE | 2018-11-30 18:00 | IPN ---
DATE: 11/30/2018 HISTORY: The patient was admitted with abdominal pain and areas of inflammation around the duodenum and pancreatic head on CT scan back on November 24. He several days later developed evidence for some retroperitoneal bleeding, and the arteriogram showed no evidence of any aneurysm or pseudoaneurysm that would require treatment. He has done pretty well over the last 24 hours. He has not required any pain medication. We began a trial of nasogastric (NG) clamping yesterday afternoon, and his NG was removed last evening. He reports no nausea or vomiting and has been passing some flatus. Vital signs show that he has had a couple of low-grade temperatures, the high up to 100.2 yesterday at 1600 and also again and at 0800 this morning. His pulse remains mildly tachycardiac from 105-117. Blood pressure is good, though it was slightly elevated very early this morning. Intake and output show that yesterday he had 2100 in with 2300 out. His urine output was 1650, and his NG tube yesterday before it was removed was 625. He has had 1100 in urine output so far today, suggesting that he may be starting to mobilize some fluid. PHYSICAL EXAMINATION: The patient is lying quietly in the hospital bed. He is alert and oriented. He denies any significant discomfort. Heart exam shows a regular rhythm of about 110. The lungs are clear to auscultation. The abdomen is obese and protuberant. He does have active bowel sounds, and there is only some minimal discomfort with palpation in the upper abdomen and even more so in the right midabdomen. Laboratory studies show today a white count of 14,000 with a hemoglobin of 9, hematocrit of 27, and a platelet count of 285,000. His chemistry profile today showed a sodium of 140, potassium 4.0, chloride 105, CO2 of 29, BUN of 16, creatinine 0.98, and glucose of 145. He had a lactic acid that was 1.1. His total bilirubin is slightly up at 2.2. His AST and ALT are both slightly elevated at 119 and 171. His lipase interestingly is 1400 today, which is the highest level he has registered since admission. IMPRESSION: The patient overall appears to be doing well. He denies any pain requiring pain medication. He tolerated his NG removed and has begun passing flatus with bowel movements. PLAN: He will be started on clear liquids. If he tolerates these well, we will discontinue his total parenteral nutrition (TPN) later in the day. We would consider advancing his diet further tomorrow. He will remain on his current medications otherwise. Hopefully he will not suffer any further setbacks and will be able to be discharged within the next several days. IVONE
[2018-11-30] MEDS: OLMESARTAN MEDOXOMIL 20 MG TAB (BENICAR) PO SCH (20:31)
[2018-12-01] MEDS: ACETAMINOPHEN TAB 650MG DOSE (2X325MG) PO PRN ×2 (00:49→17:18)
[2018-12-01 02:00] VITALS: BP 148/80
[2018-12-01 06:00] VITALS: BP 140/80
[2018-12-01] MEDS: SODIUM CHLORIDE 0.9% INJ 10 ML SYR IV SCH ×2 (06:45→16:59)
[2018-12-01 07:38] LABS: BASO # 0.1 10^3/uL (0.0-0.2); BASO % 0.7 % (0.0-1.0); EOS # 0.2 10^3/uL (0.0-0.50); EOS % 1.2 % (0.0-3.0); HEMATOCRIT 29.1 % (42.0-52.0); HEMOGLOBIN 9.8 g/dl (13.5-17.5); LYMPH # 2.4 10^3/uL (1.5-4.5); LYMPH % 16.6 % (24.0-44.0); MEAN CORPUSCULAR HEMOGLOBIN 30.2 pg (27.0-33.0); MEAN CORPUSCULAR HGB CONC 33.7 g/dl (32.0-36.5); MEAN CORPUSCULAR VOLUME 89.5 fl (80.0-96.0); MONO # 1.1 10^3/uL (0.0-0.8); MONO % 7.7 % (0.0-5.0); NEUTROPHILS # 10.3 10^3/uL (1.8-7.7); PLATELET COUNT, AUTOMATED 334 10^3/uL (150-450); RED BLOOD COUNT 3.25 10^6/uL (4.30-6.10); WHITE BLOOD COUNT 14.7 10^3/uL (4.0-10.0)
[2018-12-01 07:53] LABS: BLOOD UREA NITROGEN 20 MG/DL (7-18); CALCIUM LEVEL 8.4 MG/DL (8.5-10.1); CARBON DIOXIDE LEVEL 29 MEQ/L (21-32); CHLORIDE LEVEL 101 MEQ/L (98-107); CREATININE FOR GFR 0.99 MG/DL (0.70-1.30); GLOMERULAR FILTRATION RATE > 60.0 (>60); GLUCOSE, FASTING 139 MG/DL (70-100); POTASSIUM SERUM 3.8 MEQ/L (3.5-5.1); SODIUM LEVEL 133 MEQ/L (136-145)
[2018-12-01] MEDS: ENOXAPARIN 40 MG/0.4 ML SYRINGE (J1650) SC SCH (08:20)
[2018-12-01] MEDS: FAMOTIDINE IV BAG 20 MG in APPROPRIATE DILUENT 1 EA IV SCH ×2 (08:21→20:30)
[2018-12-01] MEDS: ATENOLOL 12.5MG PER 1/2 TABLET PO SCH ×2 (08:21→20:30)
--- NOTE | 2018-12-01 09:17 | REP ---
Portable chest x-ray: Single view. History: Fever. Comparison study November 26, 2018. Findings: A right-sided PICC line is seen in place with its tip in the position of the upper superior vena cava. The lungs are well inflated and clear. Cardiomediastinal silhouette is unremarkable. No bony abnormality is seen. Pleural angles are sharp. Impression: No infiltrate seen. Electronically Signed by Gregor Molina MD 12/01/2018 12:02 P
[2018-12-01 10:00] VITALS: BP 110/71
--- NOTE | 2018-12-01 11:55 | IPNPDOC ---
Date Seen The patient was seen on 12/01/18. Progress Note SUBJECTIVE: Tmax 100.4 yesterday, but no c/o chills, abd pain, nausea, vomiting. He c/o confusion when he was on "heavy pain medications," which has improved in the past 3 days since he has been off pain meds. He still gets a little disoriented in the late afternoon and evening, and has been unable to sleep at night waking up several times every 15 minutes. He had better sleep last night of about 2hours of sleep straight, but does not want to take any meds for insomnia. He wants to go home soon. despite sinus tach and HTN, no c/o palpitations, sob, chest pain, pressure,tightness, dizziness,or lightheadedness. He says his nasal congestion is improved. He ambulates well without sob, or dizziness. PHYSICAL EXAMINATION: VITAL SIGNS: Please see below. GENERAL APPEARANCE: obese male, anicteric no jaundice no conversational dyspnea HEENT: no JVD, oral mucosa moist, NGT intact RESPIRATORY: diminished at bases CARDIOVASCULAR: heart - tachycardic, regular, no murmur ABDOMEN:obese soft, nontender nondistended (+) bs no rebound, no rigidity, no guarding EXTREMITIES: no edema SKIN: no rash LABORATORY DATA, IMAGING STUDIES, MICROBIOLOGY: Please see below. CT ABD/PEL:Impression: 1. Severe phlegmonous and inflammatory changes in the right upper quadrant and right mid to lower abdomen as described above. Differential diagnosis includes pancreatitis as well as duodenitis and possible perforated duodenal ulcer without free air. KUB: negative for free air US: no gallstones ASSESSMENT/PLAN: 43 yo male admitted with pancreatitis - unclear etiology as patient had negative US gallbladder. He was clinically improving with his pancreatitis until approx 1930 when he passed large flatus and had increased abdomen pain and tachycardia. Abdomen pain was relieved with pain medications (dilaudid) but he continued to be tachycardic. Lab evaluation showed significant drop in hemoglobin but he denies melena, hematochezia and NGT shows no blood. patient states no CP, no SOB, but has some nausea, no vomiting, continues with intermittent "gas pain" "abdomen pain". No improvement of tachycardia with IVF. He is not hypotensive with tachycardia. Sinus Tachycardia -in the setting of hemorrhagic pancreatitis, pseudoaneurysm, acute blood loss due to GI bleed -pt denies ETOH abuse or history of withdrawal -pt has no family or personal history of DVT, PE. received lovenox previously -vitals maintained and asymptomatic, TSH wnl -if symptomatic with hypoxia , consider r/o PE with CT chest -due to slightly high blood pressure, low dose atenolol. Acute Hemorrhagic Pancreatitis -s/p NPO -on clears by primary team -s/p TPN and IV Fluids, managed by primary team -formation of pseudoaneurysm -s/p mesenteric angiogram 11/28/18, no embolization needed -with low grade temp and increased white count, check ua and cxr. Pancreatic Pseudoaneurysm due to hemorrhagic pancreatiits -IR consulted by primary service -s/p npo . on clears -s/p mesenteric angiogram 11/28/18, no embolization needed HTN -uncontrolled -low dose atenolol for sinus tach also -resumed home avapro. Obesity BMI 41 -complicating care -monitor for grace -gentle pain mgt, avoid oversedation Acute blood loss anemia -due to hemorrhagic pancreatitis -s/p 2units rbc transfusion -asymptomatic and denies chest pain,sob, lightheadedness, or dizziness Acute GI bleed -due to hemorrhagic pancreatitis -npo on tpn, ivfluids -managed by primary team Rhinitis -trial of afrin nasal spray and zyrtec DVT prophylaxis: compression stockings. VS, I&O, 24H, Fishbone Vital Signs/I&O Vital Signs Date Time Temp Pulse Resp B/P (MAP) Pulse Ox O2 Delivery O2 Flow Rate FiO2 12/01/18 02:00 98.5 85 19 148/80 (102) 99 2.0 11/27/18 04:00 Nasal Cannula I&O- Last 24 Hours up to 6 AM 12/01/18 06:00 Intake Total 480 ml Output Total 300 ml Balance 180 ml Laboratory Data 24H LABS Laboratory Tests 2 11/30/18 07:58: Lactic Acid Level 1.1 11/30/18 12:42: Bedside Glucose (Misc Panel) 166H 11/30/18 17:13: Bedside Glucose (Misc Panel) 154H Microbiology Microbiology 11/24/18 Blood Culture - Final, Complete NO GROWTH AFTER 5 DAYS 11/24/18 Blood Culture - Final, Complete NO GROWTH AFTER 5 DAYS BHARATH CHIU MD Dec 01, 2018 06:48
[2018-12-01 14:00] VITALS: BP 110/69
[2018-12-01] MEDS: PANTOPRAZOLE 40MG INJ (PROTONIX) (C9113) IV SCH (16:58)
[2018-12-01] MEDS: OLMESARTAN MEDOXOMIL 20 MG TAB (BENICAR) PO SCH (20:30)
[2018-12-01 22:00] VITALS: BP 115/69
[2018-12-02 02:00] VITALS: BP 129/84
[2018-12-02 06:00] VITALS: BP 129/83
[2018-12-02] MEDS: SODIUM CHLORIDE 0.9% INJ 10 ML SYR IV SCH (06:23)
[2018-12-02 07:17] LABS: HEMATOCRIT 28.3 % (42.0-52.0); HEMOGLOBIN 9.6 g/dl (13.5-17.5); MEAN CORPUSCULAR HEMOGLOBIN 30.1 pg (27.0-33.0); MEAN CORPUSCULAR HGB CONC 33.9 g/dl (32.0-36.5); MEAN CORPUSCULAR VOLUME 88.7 fl (80.0-96.0); PLATELET COUNT, AUTOMATED 369 10^3/uL (150-450); RED BLOOD COUNT 3.19 10^6/uL (4.30-6.10); WHITE BLOOD COUNT 11.9 10^3/uL (4.0-10.0)
[2018-12-02 07:51] LABS: BLOOD UREA NITROGEN 17 MG/DL (7-18); CALCIUM LEVEL 8.4 MG/DL (8.5-10.1); CARBON DIOXIDE LEVEL 25 MEQ/L (21-32); CHLORIDE LEVEL 99 MEQ/L (98-107); CREATININE FOR GFR 0.85 MG/DL (0.70-1.30); GLOMERULAR FILTRATION RATE > 60.0 (>60); GLUCOSE, FASTING 119 MG/DL (70-100); POTASSIUM SERUM 3.8 MEQ/L (3.5-5.1); SODIUM LEVEL 134 MEQ/L (136-145)
[2018-12-02 09:14] VITALS: BP 129/83
[2018-12-02] MEDS: ATENOLOL 12.5MG PER 1/2 TABLET PO SCH (09:14)
[2018-12-02] MEDS: ENOXAPARIN 40 MG/0.4 ML SYRINGE (J1650) SC SCH (09:15)
[2018-12-02] MEDS: FAMOTIDINE IV BAG 20 MG in APPROPRIATE DILUENT 1 EA IV SCH (09:15)
--- NOTE | 2018-12-02 09:53 | IPN ---
DATE: 12/01/2018 The patient overall has been doing quite well, feels great today. No abdominal pain or discomfort. Did have a little bit of a temperature elevation last night at 10 o'clock of 100.4, but ever since then has been normal. He has not had any nausea, no vomiting, tolerating a clear liquid diet and is hungry. He has been having bowel movements without significant diarrhea. He has had some abdominal fullness, but he states every day that seems to be getting better, seems to be peeing fine without any other complaints. Since his nasogastric (NG) tube was out, and his clear liquid diet was in, he has been feeling better. His abdomen is soft, nontender, nondistended. No guarding, no rebound, no peritoneal signs are appreciated. IMPRESSION AND PLAN: 1. The patient seems to be making some nice clinical improvement and overall from a clinical standpoint, he looks great and I anticipate we should be able to progress his diet to a regular diet as tolerated/low-fat diet. Will see how he does with that over the next 24 hours. If he is doing well and his white count is down, I feel that he is okay for discharge. 2. Elevated white count. At this point, etiology is uncertain at this time. However, his appearance and his workup thus far has been negative for etiology for this. Might be only inflammatory process that is continuing with this elevated white count.
--- NOTE | 2018-12-02 12:29 | IPNPDOC ---
Date Seen The patient was seen on 12/02/18. Progress Note SUBJECTIVE: denies n/v/abd pain. tolerating his po diet . no chills. anxious to go home. ambulating well without difficulty. no dizziness, lightheadedness, dysuria, urgency, frequency. PHYSICAL EXAMINATION: VITAL SIGNS: Please see below. GENERAL APPEARANCE: obese male, anicteric no jaundice no conversational dyspnea HEENT: no JVD, oral mucosa moist, NGT intact RESPIRATORY: diminished at bases CARDIOVASCULAR: heart - tachycardic, regular, no murmur ABDOMEN:obese soft, nontender nondistended (+) bs no rebound, no rigidity, no guarding EXTREMITIES: no edema SKIN: no rash LABORATORY DATA, IMAGING STUDIES, MICROBIOLOGY: Please see below. CT ABD/PEL:Impression: 1. Severe phlegmonous and inflammatory changes in the right upper quadrant and right mid to lower abdomen as described above. Differential diagnosis includes pancreatitis as well as duodenitis and possible perforated duodenal ulcer without free air. KUB: negative for free air US: no gallstones ASSESSMENT/PLAN: 43 yo male admitted with pancreatitis - unclear etiology as patient had negative US gallbladder. He was clinically improving with his pancreatitis until approx 1930 when he passed large flatus and had increased abdomen pain and tachycardia. Abdomen pain was relieved with pain medications (dilaudid) but he continued to be tachycardic. Lab evaluation showed significant drop in hemoglobin but he denies melena, hematochezia and NGT shows no blood. patient states no CP, no SOB, but has some nausea, no vomiting, continues with intermittent "gas pain" "abdomen pain". No improvement of tachycardia with IVF. He is not hypotensive with tachycardia. Sinus Tachycardia -in the setting of hemorrhagic pancreatitis, pseudoaneurysm, acute blood loss due to GI bleed -pt denies ETOH abuse or history of withdrawal -pt has no family or personal history of DVT, PE. received lovenox previously -vitals maintained and asymptomatic, TSH wnl -due to slightly high blood pressure, low dose atenolol. Acute Hemorrhagic Pancreatitis -s/p NPO -s/p clears by primary team to regular diet without nausea or vomiting -s/p TPN and IV Fluids, managed by primary team -formation of pseudoaneurysm -s/p mesenteric angiogram 11/28/18, no embolization needed -with low grade temp and increased white count, checked ua which was negative and cxr which was unremarkable. Pancreatic Pseudoaneurysm due to hemorrhagic pancreatiits -IR consulted by primary service -s/p npo advanced to clears and regular diet as tolerated -s/p mesenteric angiogram 11/28/18, no embolization needed HTN -uncontrolled -low dose atenolol for sinus tach also -resumed home avapro. Obesity BMI 41 -complicating care -monitor for grace -gentle pain mgt, avoid oversedation Acute blood loss anemia -due to hemorrhagic pancreatitis -s/p 2units rbc transfusion -asymptomatic and denies chest pain,sob, lightheadedness, or dizziness Acute GI bleed -due to hemorrhagic pancreatitis -stable. Rhinitis -trial of afrin nasal spray and zyrtec DVT prophylaxis: compression stockings. disposition: dc today. VS, I&O, 24H, Fishbone Vital Signs/I&O Vital Signs Date Time Temp Pulse Resp B/P (MAP) Pulse Ox O2 Delivery O2 Flow Rate FiO2 12/02/18 02:00 99.5 103 18 129/84 (99) 97 12/01/18 06:00 2.0 11/27/18 04:00 Nasal Cannula I&O- Last 24 Hours up to 6 AM 12/02/18 06:00 Intake Total 1800 ml Output Total 600 ml Balance 1200 ml Laboratory Data 24H LABS Laboratory Tests 2 12/01/18 07:21: Immature Granulocyte % (Auto) 3.8H, White Blood Count 14.7H, Red Blood Count 3.25L, Hemoglobin 9.8L, Hematocrit 29.1L, Mean Corpuscular Volume 89.5, Mean Corpuscular Hemoglobin 30.2, Mean Corpuscular Hemoglobin Concent 33.7, Red Cell Distribution Width 13.1, Platelet Count 334, Neutrophils (%) (Auto) 70.0H, Lymphocytes (%) (Auto) 16.6L, Monocytes (%) (Auto) 7.7H, Eosinophils (%) (Auto) 1.2, Basophils (%) (Auto) 0.7, Neutrophils # (Auto) 10.3H, Lymphocytes # (Auto) 2.4, Monocytes # (Auto) 1.1H, Eosinophils # (Auto) 0.2, Basophils # (Auto) 0.1, Nucleated Red Blood Cells % (auto) 0.0, Erythrocyte Sedimentation Rate > 140H, Anion Gap 3L, Glomerular Filtration Rate > 60.0, Lactic Acid Level 1.5, Blood Urea Nitrogen 20H, Creatinine 0.99, Sodium Level 133L, Potassium Level 3.8, Chloride Level 101, Carbon Dioxide Level 29, Calcium Level 8.4L, C-Reactive Protein, Quantitative 2.12H, Procalcitonin 0.28 12/01/18 13:37: Urine Color NADYA, Urine Appearance HAZY, Urine pH 5.0, Urine Specific Edmond 1.030, Urine Protein 1+H, Urine Glucose (UA) NEGATIVE, Urine Ketones NEGATIVE, Urine Blood 2+H, Urine Nitrite NEGATIVE, Urine Bilirubin NEGATIVE, Urine Urobilinogen 4.0H, Urine Leukocyte Esterase NEGATIVE, Urine WBC (Auto) 6H, Urine RBC (Auto) 2, Urine Hyaline Casts (Auto) 0, Urine Bacteria (Auto) NEGATIVE, Urine Squamous Epithelial Cells 0, Urine Mucus (Auto) SMALL, Urine Sperm (Auto) CBC/BMP Laboratory Tests 12/01/18 07:21 Red Blood Count 3.25 L, Mean Corpuscular Volume 89.5, Mean Corpuscular Hemoglobin 30.2, Mean Corpuscular Hemoglobin Concent 33.7, Red Cell Distribution Width 13.1, Neutrophils (%) (Auto) 70.0 H, Lymphocytes (%) (Auto) 16.6 L, Monocytes (%) (Auto) 7.7 H, Eosinophils (%) (Auto) 1.2, Basophils (%) (Auto) 0.7, Neutrophils # (Auto) 10.3 H, Lymphocytes # (Auto) 2.4, Monocytes # (Auto) 1.1 H, Eosinophils # (Auto) 0.2, Basophils # (Auto) 0.1, Calcium Level 8.4 L Microbiology Microbiology 12/01/18 Blood Culture, Received Pending 11/24/18 Blood Culture - Final, Complete NO GROWTH AFTER 5 DAYS 11/24/18 Blood Culture - Final, Complete NO GROWTH AFTER 5 DAYS BHARATH CHIU MD Dec 02, 2018 06:02
--- NOTE | 2018-12-22 14:31 | DSES ---
DATE OF ADMISSION: 11/24/2018 DATE OF DISCHARGE: 12/02/2018 ADMITTING DIAGNOSIS: Abdominal pain with marked retroperitoneal inflammation, possible pancreatitis versus hemorrhage versus perforation. HISTORY OF PRESENT ILLNESS: The patient is a pleasant 43-year-old man who presented to the emergency department in the late morning of November 24 complaining of a two day history of abdominal pain. He reports that his children had been ill recently with some sort of gastrointestinal bug. On November 22 he began to feel mildly unwell with some nausea and then developed somewhat vomiting. He continued on November 23 with some dry heaves and began to have more significant sharper abdominal pain in the epigastrium later in the day. The pain became severe overnight into the morning of November 24. He reportedly was diaphoretic and extremely uncomfortable, and came to the emergency department for evaluation. On presentation, he had a pulse of approximately 160, though his blood pressure was acceptable. He was in severe pain requiring narcotic analgesics. He underwent evaluation with some basic laboratory studies and then had a CT scan of the abdomen and pelvis obtained. His chemistries were not strikingly abnormal with a slight depression in his sodium and chloride with a glucose of 192, BUN of 24 and creatinine of 1.6. His liver function tests showed very slight elevations of his AST and ALT. His amylase and lipase were normal. His white blood cell count was normal at 9000, though he had 88% neutrophils. CT scan of the abdomen and pelvis showed extensive inflammatory changes in the retroperitoneum of the right upper quadrant and right mid to lower abdomen. These changes were most prominent around the first, second and third portions of the duodenum and the pancreatic head. The gallbladder was noted to be moderately distended but without obvious gallstones. There was no free air identified in the abdomen or in the retroperitoneum. The radiologist felt the findings were most compatible with acute pancreatitis, but also included possible diagnoses of duodenitis or severe peptic ulcer disease and possible perforated ulcer without free air. I was consulted and the patient was admitted for management. HOSPITAL COURSE: My initial impression was that the presentation and peripancreatic and periduodenal inflammation were most consistent with pancreatitis. I felt it was somewhat unusual that his lipase was normal. There were no signs of gallstones on CT scan and he denied any history of alcohol intake. He had no prior history of pancreatitis. Because of his presentation with severe pain and significant tachycardia, he was admitted to the intensive care unit. He was continued on IV hydration at an increased rate given probable diagnosis of acute pancreatitis. The following morning, actually the evening of admission, a repeat lipase was found to be elevated to 726, though his amylase remained normal. His triglycerides were minimally elevated and did not seem to account for an episode of acute pancreatitis. He had a gallbladder ultrasound obtained on the to look for gallstones and this showed no evidence of gallstones with a normal biliary tract according to the radiologist. He had been started on Zosyn in the emergency department because a perforation was considered one of his diagnostic possibilities and this was stopped on the . On the he seemed to be somewhat better with diminished pain. He had an NG tube in place which continued with some significant output. He did have a temperature, but this was not felt to be unusual given a diagnosis of pancreatitis. His urine output improved following his hydration. His Duran catheter was removed on the . Late on November 26 the patient developed severe pain again and became quite tachycardic. He required larger doses of narcotics. Follow-up labs showed that his hematocrit had fallen to 27 on the evening of the and then to 25 by 0400 hours on November 27. My covering physician consulted the hospitalist for assistance in management and also ordered 2 units of packed red blood cells. A repeat CT scan was obtained which showed significantly increased amounts of fluid infiltrating through the retroperitoneum extending to the right side and down to the pelvis. The radiologist felt this was suggestive of hemorrhage and hematoma. There was some free fluid in the abdomen and pelvis but not felt to be blood density. There was also a hyperdense contrast-enhanced nodule approximately 12 mm maximally in the area just inferior to the pancreatic head, which was felt to be consistent with a developing pseudoaneurysm. He received 2 units of packed red blood cells. A PICC line was ordered so that he could be started on total parenteral nutrition. A consultation was requested from Dr. Caicedo of interventional radiology and she planned to proceed with arteriography and further intervention as necessary for a pseudoaneurysm on November 28. His NG tube was continued. On the he did have his arteriogram performed. His hematocrit had come up to 26 following his 2 units of packed red blood cells, his pulse had improved and his pain had again diminished quite a bit. His arteriogram was a mesenteric angiogram and demonstrated some celiac artery stenosis with retrograde filling of the common and proper hepatic artery through the gastroduodenal artery and a hypertrophied pancreaticoduodenal arcade. No aneurysms or pseudoaneurysms or evidence of active extravasation of blood was seen. Following the arteriogram his pain diminished significantly. By the he was sitting up in a chair in and had no pain medicines since the following day. His urine output was excellent. His NG output appeared to have diminished somewhat and a NG clamping trial was performed. He tolerated this well and his NG tube was discontinued late on the . He was started on clear liquids and he tolerated these well. His total parenteral nutrition was subsequently discontinued. By the he was advanced to a regular diet and did well with this without any increase in his pain. Labs remained stable and he was discharged home on December 02, 2018. FINAL DIAGNOSES: 1. Acute pancreatitis of unknown etiology with severe retroperitoneal inflammation and hemorrhage. 2. Anemia secondary to blood loss requiring transfusion. 3. 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 4. Morbid obesity. 5. Essential hypertension. DISPOSITION: The patient was discharged home on December 02 in good condition. He was advised to follow a low fat diet. He could pursue activity as tolerated. He was to follow-up with his primary caregiver, RIO Mcdowell. He was to follow-up with me in the office in approximately 2 weeks. He was not provided with any new medications and was to continue his olmesartan as before admission. He was to return to the emergency department or call the office for worsening symptoms.
== END 2018-12-02 11:40 | disposition home or self-care (01) | DRG 282 ==
LOC: M ED 12:32 → M ED INP 15:03 → M ICU 17:26 → M MS5PR 11-30 11:43
PROVIDERS: ADMIT Surgery; ATTEND Surgery
PROC: 02HV33Z Insertion of Infusion Device into Superior Vena Cava, Percutaneous Approach (ICD-10-PCS; 2018-11-27)
PROC: 30233N1 Transfusion of Nonautologous Red Blood Cells into Peripheral Vein, Percutaneous Approach (ICD-10-PCS; principal; 2018-11-27 11:27)
PROC: B415YZZ Fluoroscopy of Inferior Mesenteric Artery using Other Contrast (ICD-10-PCS; 2018-11-28)
DX: K85.90 Acute pancreatitis without necrosis or infection, unspecified (principal); I77.4 Celiac artery compression syndrome; Z68.41 Body mass index [BMI] 40.0-44.9, adult; E66.01 Morbid (severe) obesity due to excess calories; D62 Acute posthemorrhagic anemia; I10 Essential (primary) hypertension; Z88.8 Allergy status to other drugs, medicaments and biological substances

== ENCOUNTER → 2018-12-24 | Outpatient (CLI) | payer BC ==
[~2018-12-24] MED LIST: OLME40TA PO
--- NOTE | 2018-12-25 07:39 | REP ---
Clinical: Pancreatitis. Technique: Real time gonzalez scale ultrasound examination using curved array transducer. Findings: Liver appears hyperechoic suggesting fatty infiltration without focal hepatic lesion identified. The gallbladder is normal and without gallstones, wall thickening, or pericholecystic fluid. No biliary ductal dilatation is appreciated and the common bile duct measures 6 mm diameter. The right kidney is normal in reniform shape without hydronephrosis and measures 11.4 x 5.6 x 5.3 cm. No ascites. Impression: Hepatic steatosis. Electronically Signed by James Han MD 12/25/2018 07:31 A
== END ==
LOC: M RAD 06:18
PROVIDERS: ATTEND Surgery
DX: K85.00 Idiopathic acute pancreatitis without necrosis or infection (principal); K76.0 Fatty (change of) liver, not elsewhere classified

== ENCOUNTER → 2020-04-20 | Outpatient (CLI) | payer BC ==
--- NOTE | 2020-04-23 12:07 | SLEEPCENT ---
NOCTURNAL POLYSOMNOGRAPHY [facility] DATE: 04/20/2020 ORDERED BY: PAKO Reid Nocturnal polysomnography was performed for evaluation of sleep physiology in this patient with a history of excessive somnolence and non-restorative therapy who has comorbidities of hypertension and obesity. Seven hours and 38 minutes of data were reviewed. There were 418.5 minutes of sleep identified. Sleep latency was mildly prolonged at 15.5 minutes. REM latency was prolonged at 134 minutes. Sleep architecture was fair with some fragmentation and progression. There were four brief REM cycles noted. Overall sleep efficiency was 92.9%. The electrocardiogram showed a sinus rhythm with an average heart rate of 62 beats per minute. EEG showed normal waveforms for wake and sleep. There were 399 respiratory events identified of ten seconds in duration or greater for an apnea hypopnea index of 57.2. The events were primarily obstructive but 30 mixed and central apneas were also seen. The events were not exclusive to sleep stage but were somewhat more prominent in the supine posture. Arousals from respiratory events occurred 5.2 times per hour and oxygen desaturations were seen below 90%. There was some mild activity in the limb leads and snoring was noted over the entire course of the study. IMPRESSIONS: Severe obstructive sleep apnea syndrome (G47.33). Apnea hypopnea index 57.2. RECOMMENDATION: The patient should be encouraged to return to the [facility] for [facility] therapy. In the interim, alcohol and sedative avoidance should be practiced and caution exercised during the operation of motor vehicles. RIO Phillips
== END ==
LOC: M SLEEP 20:00
PROVIDERS: ATTEND Nurse Practitioner Family
DX: R06.83 Snoring (principal)

== ENCOUNTER → 2020-06-10 | Outpatient (CLI) | payer BC ==
--- NOTE | 2020-06-11 15:20 | SLEEPCENT ---
DATE: 06/10/2020 ORDERED BY: Natasha Cosme Nocturnal polysomnography was performed for the titration of pressure therapy in this patient with severe obstructive sleep apnea syndrome, apnea-hypopnea index 57.2. For testing, a [employer]Med Quattro Mirage full-face mask of large size was used. There was 4 cm of water pressure applied to the circuit, and the lights were extinguished. There was 7 hours and 31 minutes of data reviewed. There was 406 minutes of sleep identified. Sleep latency was normal at 8 minutes. REM latency was a bit short at 64 minutes. Sleep architecture was good with three REM cycles. Overall sleep efficiency was 91.3%. The electrocardiogram showed a sinus rhythm with an average heart rate of 70 beats per minute. EEG showed normal waveforms for wake and sleep. Respiratory events were fully palliated with CPAP at a pressure of +12. There was some minor limb activity and snoring, which was also palliated with the appropriate pressure. IMPRESSION: Obstructive sleep apnea syndrome (G47.33). RECOMMENDATION: Nightly use of pressure therapy, 12 cm of water.
== END ==
LOC: M SLEEP 20:00
PROVIDERS: ATTEND Nurse Practitioner Family
DX: G47.33 Obstructive sleep apnea (adult) (pediatric) (principal)